=== PATIENT | female | born 1985 | race Hispanic/Latino ===

== ENCOUNTER 2018-06-04 12:05 | Emergency (ER) | payer SELFPAY ==
[2018-06-04 13:09] LABS: Absolute Lymphocytes (CBC) 1.1 K/uL (0.7-4.9); Absolute Monocytes 0.3 K/uL (0.1-1.3); Absolute Neutrophil 5.9 K/uL (1.8-8.0); Basophils % 0.3 % (0-1.3); Eosinophils % 0.9 % (0-4.4); Hematocrit 35.5 % (36.0-45.0); Lymphocytes % 14.3 % (15.3-44.8); MCH 27.1 pg (27.0-35.0); MCV 80.1 fL (80-100); MPV 10.2 fL (7.6-11.3); Monocytes % 4.5 % (3.3-12.3); RBC Red Blood Cell Count 4.43 M/uL (3.86-4.86)
[2018-06-04 13:25] LABS: Protime INR 1.11
[2018-06-04 13:27] LABS: ALT/SGPT 42 U/L (12-78); AST/SGOT 22 U/L (15-37); Alkaline Phosphatase 90 U/L (45-117); BUN Blood Urea Nitrogen 10 mg/dL (7-18); Bicarbonate 26 mmol/L (21-32); Bilirubin Direct 0.1 mg/dL (0-0.2); Bilirubin Total 0.4 mg/dL (0.2-1.0); Glucose Level 93 mg/dL (74-106); Potassium 3.9 mmol/L (3.5-5.1); Protein, Total 8.1 g/dL (6.4-8.2); Sodium Level 140 mmol/L (136-145)
[2018-06-04 13:27] LABS: Barbiturates NEGATIVE (NEGATIVE); Benzodiazepines NEGATIVE (NEGATIVE); Cocaine NEGATIVE (NEGATIVE); METHAMPHETAM NEGATIVE (NEGATIVE); Methadone NEGATIVE (NEGATIVE); Opiates NEGATIVE (NEGATIVE); Phencyclidine NEGATIVE (NEGATIVE); THC Cannibis NEGATIVE (NEGATIVE)
--- NOTE | 2018-06-04 13:29 | EKG ---
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
[2018-06-04] MEDS ORDERED: ACETAMINOPHEN 500 MG TAB ONE (20:28)
[2018-06-05] MEDS ORDERED: DIPHENHYDRAMINE 25 MG TAB/CAP ONE (01:35)
--- NOTE | 2018-06-05 12:07 | ER ---
Nurse's Notes [facility] Name: Tiana Mcclellan Age: 33 yrs Sex: Female : 1985 Arrival Date: 06/04/2018 Time: 12:09 Bed 6 Private MD: Diagnosis: Suicidal ideations Presentation: 06/04 12:17 Presenting complaint: Mental Health [place] reports pt sent her a suicide note hb via text along with a picture of a noose. went home to find pt in garage with a noose handing from ceiling. Pt has hx of suicidal ideation with one attempt by hanging. Transition of care: patient was not received from another setting of care. Onset of symptoms was June 04, 2018. Risk Assessment: Do you want to hurt yourself or someone else? Patient reports desire/thoughts of hurting themselves or someone else. Provider notified. Care prior to arrival: None. 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 - Social history:: Smoking status: Patient/guardian denies using tobacco. - Ebola Screening: : No symptoms or risks identified at this time. Screenin:40 Abuse screen: Denies threats or abuse. Denies injuries from another. Nutritional sg screening: No deficits noted. Tuberculosis screening: No symptoms or risk factors identified. Never had TB. Fall Risk None identified. Assessment: 12:40 General: Appears in no apparent distress. comfortable, well groomed, well developed, sg well nourished, Behavior is calm, cooperative, quiet. Pain: Denies pain. Neuro: Level of Consciousness is awake, alert, obeys commands, Oriented to person, place, time, Speech is normal, Facial symmetry appears normal. Cardiovascular: Patient's skin is warm and dry. Chest pain is denied. Respiratory: Airway is patent Respiratory effort is even, unlabored, Respiratory pattern is regular, symmetrical. GI: Abdomen is round non-distended. : No signs and/or symptoms were reported regarding the genitourinary system. EENT: No signs and/or symptoms were reported regarding the EENT system. Derm: Skin is intact, is healthy with good turgor, Skin is dry, Skin is normal, Skin temperature is warm. Musculoskeletal: Circulation, motion, and sensation intact. Swelling absent. 12:52 Reassessment: pt belongings removed and secured in security at this time A black bra, a sg spangler shirt, two black fabric flip flops, under garments, and bottoms, a cellular phone, a wallet, documented on paper charting and given to Security at this time. 13:40 Reassessment: Patient and/or family updated on plan of care and expected duration. Pain sg level reassessed. Patient is alert, oriented x 3, equal unlabored respirations, skin warm/dry/pink. 14:20 Reassessment: Patient appears in no apparent distress at this time. Patient and/or sg family updated on plan of care and expected duration. Pain level reassessed. Patient is alert, oriented x 3, equal unlabored respirations, skin warm/dry/pink. Alicia ( pt aunt)- [phone]. 14:40 Reassessment: Patient appears in no apparent distress at this time. Patient and/or sg family updated on plan of care and expected duration. Pain level reassessed. Patient is alert, oriented x 3, equal unlabored respirations, skin warm/dry/pink. pt family at bedside at this time, awaiting transfer approval from receiving facility. no new orders received, will continue to monitor. 15:40 Reassessment: Patient appears in no apparent distress at this time. Patient and/or sg family updated on plan of care and expected duration. Pain level reassessed. Patient is alert, oriented x 3, equal unlabored respirations, skin warm/dry/pink. 17:48 Reassessment: awaiting acceptance to receiving facility at this time, pt remains calm sg and pleasant, resting quietly on stretcher, no new orders received at this time. 19:24 Reassessment: Pt appears to be sleeping eyes closed, resp unlabored, no signs of bb discomfort noted will continue to monitor awaiting acceptance at psychiatric facility for further evaluation and possible treatment. 20:23 Reassessment: pt c/o headache K. Hardeep WAREHOUSE ADMINISTRATOR notified pt medicated see MAR. bb 21:27 Reassessment: family at bedside with food pt eating and acting appropriately. bb 23:53 Reassessment: Patient is alert, oriented x 3, equal unlabored respirations, skin bb warm/dry/pink. pt resting quietly, no discomfort noted. 06/05 01:30 Reassessment: PT C/O RASH/ITCHING, LOCALIZED TO ADHESIVES. MD NOTIFIED AND PT MEDICATED.bp 03:57 Reassessment: PT RESTING QUIETLY, ALL CURRENT STUDIES COMPLETED. URTICARIA RESOLVED. bp 12:42 Reassessment: Report given to Shannan HALE at [facility]. sv Vital Signs: 06/04 12:22 BP 128 / 81; Pulse 80; Resp 16; Temp 98; Pulse Ox 96% on R/A; Pain 3/10; hb 16:00 BP 121 / 80; Pulse 73; Resp 16; Pulse Ox 99% ; Pain 8/10; js4 20:29 BP 123 / 86; Pulse 97; Resp 14; Pulse Ox 100% ; kk5 06/05 01:06 BP 101 / 52; Pulse 67; Resp 12; Pulse Ox 98% ; kk5 04:03 BP 102 / 75; Pulse 84; Pulse Ox 98% ; kk5 ED Course: 06/04 12:09 Patient arrived in ED. bd 12:10 Sahara Meier FNP-C [facility]. kb 12:10 Hemant Andrade MD is Attending Physician. kb 12:15 Safety checks: Items removed: yes. Door open/sign placed on door: yes. Family/friend dh3 present: no. Sitter present: Yes. 12:17 Nita Shearer, ALEXIA is Primary Nurse. hb 12:21 Triage completed. hb 12:22 Arm band placed on right wrist. hb 12:30 Safety checks: Items removed: yes. Door open/sign placed on door: yes. Family/friend dh3 present: no. Sitter present: Yes. 12:39 EKG done, by crm technical lead. reviewed by Sahara STEWART. at1 12:45 Safety checks: Items removed: yes. Door open/sign placed on door: yes. Family/friend dh3 present: no. Sitter present: Yes. 12:50 Initial lab(s) drawn, by me, sent to lab. Inserted saline lock: 20 gauge in left dh3 antecubital area, using aseptic technique. Blood collected. 12:57 Urine collected: clean catch specimen, shayla colored. 3 13:00 Safety checks: Items removed: yes. Door open/sign placed on door: yes. Family/friend dh3 present: no. Sitter present: Yes. 13:06 Gerard Aponte RN is Primary Nurse. 13:15 Safety checks: Items removed: yes. Door open/sign placed on door: yes. Family/friend dh3 present: no. Sitter present: Yes. 13:30 Safety Checks: Personal items have been removed. The door is open or patient has been js4 placed in a hallway bed/chair. A family member and/or friend is present and encouraged to stay. Sitter present at this time. 13:45 Safety Checks: Personal items have been removed. The door is open or patient has been js4 placed in a hallway bed/chair. A family member and/or friend is present and encouraged to stay. Sitter present at this time. 14:00 Safety Checks: Personal items have been removed. The door is open or patient has been js4 placed in a hallway bed/chair. A family member and/or friend is present and encouraged to stay. Sitter present at this time. 14:15 Safety Checks: Personal items have been removed. The door is open or patient has been js4 placed in a hallway bed/chair. A family member and/or friend is present and encouraged to stay. Sitter present at this time. 14:30 Safety Checks: Personal items have been removed. The door is open or patient has been js4 placed in a hallway bed/chair. A family member and/or friend is present and encouraged to stay. Sitter present at this time. 14:45 Safety Checks: Personal items have been removed. The door is open or patient has been js4 placed in a hallway bed/chair. There are no family/friend visitors at this time Sitter present at this time. 15:00 Safety Checks: Personal items have been removed. The door is open or patient has been js4 placed in a hallway bed/chair. A family member and/or friend is present and encouraged to stay. Sitter present at this time. 15:15 Safety Checks: Personal items have been removed. The door is open or patient has been js4 placed in a hallway bed/chair. A family member and/or friend is present and encouraged to stay. Sitter present at this time. 15:30 Safety Checks: Personal items have been removed. The door is open or patient has been js4 placed in a hallway bed/chair. A family member and/or friend is present and encouraged to stay. Sitter present at this time. 15:45 Safety Checks: Personal items have been removed. The door is open or patient has been js4 placed in a hallway bed/chair. A family member and/or friend is present and encouraged to stay. Sitter present at this time. 16:00 Safety Checks: Personal items have been removed. The door is open or patient has been js4 placed in a hallway bed/chair. There are no family/friend visitors at this time Sitter present at this time. 16:15 Safety Checks: Personal items have been removed. The door is open or patient has been js4 placed in a hallway bed/chair. There are no family/friend visitors at this time Sitter present at this time. 16:30 Safety Checks: Personal items have been removed. The door is open or patient has been js4 placed in a hallway bed/chair. There are no family/friend visitors at this time Sitter present at this time. 16:45 Safety Checks: Personal items have been removed. The door is open or patient has been js4 placed in a hallway bed/chair. A family member and/or friend is present and encouraged to stay. Sitter present at this time. 17:00 Safety Checks: Personal items have been removed. The door is open or patient has been js4 placed in a hallway bed/chair. A family member and/or friend is present and encouraged to stay. Sitter present at this time. 17:15 Safety Checks: Personal items have been removed. The door is open or patient has been js4 placed in a hallway bed/chair. A family member and/or friend is present and encouraged to stay. Sitter present at this time. 17:20 Diet: Patient given a regular meal tray. sg 17:30 Safety Checks: Personal items have been removed. The door is open or patient has been js4 placed in a hallway bed/chair. A family member and/or friend is present and encouraged to stay. Sitter present at this time. 17:45 Safety Checks: Personal items have been removed. The door is open or patient has been js4 placed in a hallway bed/chair. A family member and/or friend is present and encouraged to stay. Sitter present at this time. 18:00 Safety Checks: Personal items have been removed. The door is open or patient has been js4 placed in a hallway bed/chair. A family member and/or friend is present and encouraged to stay. Sitter present at this time. 18:15 Safety Checks: Personal items have been removed. The door is open or patient has been js4 placed in a hallway bed/chair. A family member and/or friend is present and encouraged to stay. Sitter present at this time. 18:30 Safety Checks: Personal items have been removed. The door is open or patient has been js4 placed in a hallway bed/chair. There are no family/friend visitors at this time Sitter present at this time. 18:45 Safety Checks: Personal items have been removed. The door is open or patient has been js4 placed in a hallway bed/chair. There are no family/friend visitors at this time Sitter present at this time. 18:54 Safety Checks: Personal items have been removed. The door is open or patient has been kk5 placed in a hallway bed/chair. There are no family/friend visitors at this time Other: pt request water,states has CINTRON. 19:13 Safety Checks: Personal items have been removed. The door is open or patient has been kk5 placed in a hallway bed/chair. There are no family/friend visitors at this time Sitter present at this time. 19:24 Pura Martínez, ALEXIA is Primary Nurse. bb 20:00 Safety Checks: Personal items have been removed. The door is open or patient has been kk5 placed in a hallway bed/chair. There are no family/friend visitors at this time Sitter present at this time. 20:14 Safety Checks: Personal items have been removed. The door is open or patient has been kk5 placed in a hallway bed/chair. There are no family/friend visitors at this time Sitter present at this time. 20:30 Safety Checks: Personal items have been removed. The door is open or patient has been kk5 placed in a hallway bed/chair. There are no family/friend visitors at this time Sitter present at this time. 20:42 Safety Checks: Personal items have been removed. The door is open or patient has been kk5 placed in a hallway bed/chair. There are no family/friend visitors at this time Sitter present at this time. 20:58 Safety Checks: Personal items have been removed. The door is open or patient has been kk5 placed in a hallway bed/chair. There are no family/friend visitors at this time Sitter present at this time. 21:14 Safety Checks: Personal items have been removed. The door is open or patient has been kk5 placed in a hallway bed/chair. A family member and/or friend is present and encouraged to stay. Sitter present at this time. 21:30 Safety Checks: Personal items have been removed. The door is open or patient has been kk5 placed in a hallway bed/chair. A family member and/or friend is present and encouraged to stay. Sitter present at this time. 21:44 Safety Checks: Personal items have been removed. The door is open or patient has been kk5 placed in a hallway bed/chair. A family member and/or friend is present and encouraged to stay. Sitter present at this time. 21:58 Safety Checks: Personal items have been removed. The door is open or patient has been kk5 placed in a hallway bed/chair. A family member and/or friend is present and encouraged to stay. Sitter present at this time. 22:14 Safety Checks: Personal items have been removed. The door is open or patient has been kk5 placed in a hallway bed/chair. A family member and/or friend is present and encouraged to stay. Sitter present at this time. 22:28 Safety Checks: Personal items have been removed. The door is open or patient has been kk5 placed in a hallway bed/chair. A family member and/or friend is present and encouraged to stay. Sitter present at this time. 22:45 Safety Checks: Personal items have been removed. The door is open or patient has been kk5 placed in a hallway bed/chair. There are no family/friend visitors at this time Sitter present at this time. 22:58 Safety Checks: Personal items have been removed. The door is open or patient has been kk5 placed in a hallway bed/chair. There are no family/friend visitors at this time Sitter present at this time. 23:12 Safety Checks: Personal items have been removed. The door is open or patient has been kk5 placed in a hallway bed/chair. There are no family/friend visitors at this time Sitter present at this time. 23:28 Safety Checks: Personal items have been removed. The door is open or patient has been kk5 placed in a hallway bed/chair. There are no family/friend visitors at this time Sitter present at this time. 23:47 Safety Checks: Personal items have been removed. The door is open or patient has been kk5 placed in a hallway bed/chair. There are no family/friend visitors at this time Sitter present at this time. 23:57 Safety Checks: Personal items have been removed. The door is open or patient has been kk5 placed in a hallway bed/chair. There are no family/friend visitors at this time Sitter present at this time. 06/05 00:14 Safety Checks: Personal items have been removed. The door is open or patient has been kk5 placed in a hallway bed/chair. There are no family/friend visitors at this time Sitter present at this time. 00:30 Safety Checks: Personal items have been removed. The door is open or patient has been kk5 placed in a hallway bed/chair. There are no family/friend visitors at this time Sitter present at this time. 00:48 Safety Checks: Personal items have been removed. The door is open or patient has been kk5 placed in a hallway bed/chair. There are no family/friend visitors at this time Sitter present at this time. 00:59 Safety Checks: Personal items have been removed. The door is open or patient has been kk5 placed in a hallway bed/chair. There are no family/friend visitors at this time Sitter present at this time. 01:14 Safety Checks: Personal items have been removed. The door is open or patient has been kk5 placed in a hallway bed/chair. There are no family/friend visitors at this time Sitter present at this time. 01:30 Safety Checks: Personal items have been removed. The door is open or patient has been kk5 placed in a hallway bed/chair. There are no family/friend visitors at this time Sitter present at this time. 01:30 IV discontinued, intact, bleeding controlled, No redness/swelling at site. Pressure bp dressing applied. 01:45 Safety Checks: Personal items have been removed. The door is open or patient has been kk5 placed in a hallway bed/chair. There are no family/friend visitors at this time Sitter present at this time. 02:00 Safety Checks: Personal items have been removed. The door is open or patient has been kk5 placed in a hallway bed/chair. There are no family/friend visitors at this time Sitter present at this time. 02:14 Safety Checks: Personal items have been removed. The door is open or patient has been kk5 placed in a hallway bed/chair. There are no family/friend visitors at this time Sitter present at this time. 02:29 Safety Checks: Personal items have been removed. The door is open or patient has been kk5 placed in a hallway bed/chair. There are no family/friend visitors at this time Sitter present at this time. 02:45 Safety Checks: Personal items have been removed. The door is open or patient has been kk5 placed in a hallway bed/chair. There are no family/friend visitors at this time Sitter present at this time. 02:59 Safety Checks: Personal items have been removed. The door is open or patient has been kk5 placed in a hallway bed/chair. There are no family/friend visitors at this time Sitter present at this time. 03:17 Safety Checks: Personal items have been removed. The door is open or patient has been kk5 placed in a hallway bed/chair. There are no family/friend visitors at this time Sitter present at this time. 03:32 Safety Checks: Personal items have been removed. The door is open or patient has been kk5 placed in a hallway bed/chair. There are no family/friend visitors at this time Sitter present at this time. 03:49 Safety Checks: Personal items have been removed. The door is open or patient has been kk5 placed in a hallway bed/chair. There are no family/friend visitors at this time Sitter present at this time. 04:09 Safety Checks: Personal items have been removed. The door is open or patient has been kk5 placed in a hallway bed/chair. There are no family/friend visitors at this time Sitter present at this time. 04:31 Safety Checks: Personal items have been removed. The door is open or patient has been kk5 placed in a hallway bed/chair. There are no family/friend visitors at this time Sitter present at this time. 04:44 Safety Checks: Personal items have been removed. The door is open or patient has been kk5 placed in a hallway bed/chair. There are no family/friend visitors at this time Sitter present at this time. 05:00 Safety Checks: Personal items have been removed. The door is open or patient has been kk5 placed in a hallway bed/chair. There are no family/friend visitors at this time Sitter present at this time. 05:15 Safety Checks: Personal items have been removed. The door is open or patient has been kk5 placed in a hallway bed/chair. There are no family/friend visitors at this time Sitter present at this time. 05:29 Safety Checks: Personal items have been removed. The door is open or patient has been kk5 placed in a hallway bed/chair. There are no family/friend visitors at this time Sitter present at this time. 05:44 Safety Checks: Personal items have been removed. The door is open or patient has been kk5 placed in a hallway bed/chair. There are no family/friend visitors at this time Sitter present at this time. 05:57 Safety Checks: Personal items have been removed. The door is open or patient has been kk5 placed in a hallway bed/chair. There are no family/friend visitors at this time Sitter present at this time. 06:15 Safety Checks: Personal items have been removed. The door is open or patient has been kk5 placed in a hallway bed/chair. There are no family/friend visitors at this time Sitter present at this time. 06:31 Safety Checks: Personal items have been removed. The door is open or patient has been kk5 placed in a hallway bed/chair. There are no family/friend visitors at this time Sitter present at this time. 06:46 Safety Checks: Personal items have been removed. The door is open or patient has been kk5 placed in a hallway bed/chair. There are no family/friend visitors at this time Sitter present at this time. 06:57 Safety Checks: Personal items have been removed. The door is open or patient has been kk5 placed in a hallway bed/chair. There are no family/friend visitors at this time Sitter present at this time. 07:04 Safety checks: Items removed: yes. Door open/sign placed on door: yes. Family/friend em1 present: no. Sitter present: Yes. 07:05 Primary Nurse role handed off by Pura Martínez, ALEXIA sg 07:05 Gerard Aponte, ALEXIA is Primary Nurse. sg 07:18 Safety checks: Items removed: yes. Door open/sign placed on door: yes. Family/friend em1 present: no. Sitter present: Yes. 07:26 Faxed patient record to the following facilities in the attempt to transfer patient ; [facility], [facility], [facility], [facility], [facility], [facility], [facility], [facility], [facility], [facility], [facility], [facility] and [facility]. 07:32 Safety checks: Items removed: yes. Door open/sign placed on door: yes. Family/friend em1 present: no. Sitter present: Yes. 07:46 Safety checks: Items removed: yes. Door open/sign placed on door: yes. Family/friend em1 present: no. Sitter present: Yes. 08:06 Safety checks: Items removed: yes. Door open/sign placed on door: yes. Family/friend em1 present: no. Sitter present: Yes. 08:17 Safety checks: Items removed: yes. Door open/sign placed on door: yes. Family/friend em1 present: no. Sitter present: Yes. 08:30 Safety Checks: Personal items have been removed. The door is open or patient has been fa1 placed in a hallway bed/chair. There are no family/friend visitors at this time Sitter present at this time. 08:45 Safety Checks: Personal items have been removed. The door is open or patient has been fa1 placed in a hallway bed/chair. There are no family/friend visitors at this time Sitter present at this time. 09:00 Safety Checks: Personal items have been removed. The door is open or patient has been fa1 placed in a hallway bed/chair. There are no family/friend visitors at this time Sitter present at this time. 09:15 Safety Checks: Personal items have been removed. The door is open or patient has been fa1 placed in a hallway bed/chair. There are no family/friend visitors at this time Sitter present at this time. 09:30 Safety Checks: Personal items have been removed. The door is open or patient has been fa1 placed in a hallway bed/chair. There are no family/friend visitors at this time Sitter present at this time. 09:45 Safety Checks: Personal items have been removed. The door is open or patient has been fa1 placed in a hallway bed/chair. A family member and/or friend is present and encouraged to stay. Sitter present at this time. 10:00 Safety Checks: Personal items have been removed. The door is open or patient has been fa1 placed in a hallway bed/chair. A family member and/or friend is present and encouraged to stay. Sitter present at this time. 10:15 Safety Checks: Personal items have been removed. The door is open or patient has been fa1 placed in a hallway bed/chair. A family member and/or friend is present and encouraged to stay. Sitter present at this time. 10:30 Safety Checks: Personal items have been removed. The door is open or patient has been fa1 placed in a hallway bed/chair. A family member and/or friend is present and encouraged to stay. Sitter present at this time. 10:45 Safety Checks: Personal items have been removed. The door is open or patient has been fa1 placed in a hallway bed/chair. A family member and/or friend is present and encouraged to stay. Sitter present at this time. 10:49 initiated transfer with Sammi at the [facility] transfer center/ Faxed exclusionary eb forms and patient records as requested by facility. 11:00 Safety Checks: Personal items have been removed. The door is open or patient has been fa1 placed in a hallway bed/chair. A family member and/or friend is present and encouraged to stay. Sitter present at this time. 11:15 Safety Checks: Personal items have been removed. The door is open or patient has been fa1 placed in a hallway bed/chair. A family member and/or friend is present and encouraged to stay. Sitter present at this time. 11:30 Safety Checks: Personal items have been removed. The door is open or patient has been fa1 placed in a hallway bed/chair. A family member and/or friend is present and encouraged to stay. Sitter present at this time. 11:45 Safety Checks: Personal items have been removed. The door is open or patient has been fa1 placed in a hallway bed/chair. A family member and/or friend is present and encouraged to stay. Sitter present at this time. 11:50 connected the Doctor from [facility] with [facility] for patient transfer consultation. eb 11:54 administrative approval given by Sammi Mcguire/ Dr. Abdullahi accepted the patient in eb transfer. Sammi will call back to get nurse to nurse done and at that time a room will be given for the patient. 12:00 Safety Checks: Personal items have been removed. The door is open or patient has been fa1 placed in a hallway bed/chair. A family member and/or friend is present and encouraged to stay. Sitter present at this time. 12:15 Safety Checks: Personal items have been removed. The door is open or patient has been fa1 placed in a hallway bed/chair. A family member and/or friend is present and encouraged to stay. Sitter present at this time. 12:30 Safety Checks: Personal items have been removed. The door is open or patient has been fa1 placed in a hallway bed/chair. There are no family/friend visitors at this time Sitter present at this time. 12:31 connected Sammi with the ED nurse for nurse to nurse. eb 12:45 Safety Checks: Personal items have been removed. The door is open or patient has been fa1 placed in a hallway bed/chair. There are no family/friend visitors at this time Sitter present at this time. 13:00 Safety Checks: Personal items have been removed. The door is open or patient has been fa1 placed in a hallway bed/chair. There are no family/friend visitors at this time Sitter present at this time. 13:15 Safety Checks: Personal items have been removed. The door is open or patient has been fa1 placed in a hallway bed/chair. There are no family/friend visitors at this time Sitter present at this time. 13:30 Safety Checks: Personal items have been removed. The door is open or patient has been fa1 placed in a hallway bed/chair. There are no family/friend visitors at this time Sitter present at this time. 13:45 Safety Checks: Personal items have been removed. The door is open or patient has been fa1 placed in a hallway bed/chair. A family member and/or friend is present and encouraged to stay. Sitter present at this time. 14:09 No provider procedures requiring assistance completed. sv Administered Medications: 06/04 20:23 Drug: Tylenol 1000 mg Route: PO; bb 22:00 Follow up: Response: Pain is decreased bp 06/05 01:32 Drug: Benadryl 25 mg Route: PO; bp 03:54 Follow up: Response: Marked relief of symptoms bp Outcome: 12:06 ER care complete, transfer ordered by . anali 14:08 Transferred by ground EMS to [facility], Transfer form completed. Note: sv Report given to EMS 14:08 Condition: stable 14:08 Instructed on the need for transfer. 14:09 Patient left the ED. sv Signatures: Sahara Meier, GEODESY TEACHER-C GEODESY TEACHER-CkCleopatra Jean Stephanie, RN Gerard Brooks RN Pura Springer RN RN bb Martinez, Eric em1 Bettye Jeff, plaster maker EKG Tat1 Javier Yates RN RN fa1 Nita Shearer RN Beth Arauz 3 Lit Nougeira, RN RN js4 Hao Diaz RN RN bp Botello, Elizabeth eb Kouba, Kimberly kk5 Corrections: (The following items were deleted from the chart) 06/04 13:44 13:27 Patient is placed in psych hold js4 js4 15:00 14:44 Safety Checks: Personal items have been removed. The door is open or patient has js4 been placed in a hallway bed/chair. There are no family/friend visitors at this time Sitter present at this time. js4 06/05 03:55 03:53 BP 124 / 87; Pulse 76bpm; Resp 14bpm; Pulse Ox 100%; bp bp
--- NOTE | 2018-06-05 12:07 | EDPHYS ---
Physician Documentation [facility] Name: Tiana Mcclellan Age: 33 yrs Sex: Female : 1985 Arrival Date: 06/04/2018 Time: 12:09 Bed 6 Private MD: ED Physician Hemant Andrade HPI: 06/05 12:06 This 33 yrs old Female presents to ER via [employer] with complaints of kb Suicidal Ideation. 06/04 13:27 The patient presents to the emergency department with depression, over a relationship, kb a history of a suicide gesture, tied noose around neck, suicide ideation, and the patient has a plan, to hang oneself. Onset: The symptoms/episode began/occurred. The patient has experienced similar episodes in the past. The patient has not recently seen a physician. 06/05 12:06 Associated signs and symptoms: Pertinent positives; depression, suicide ideation. kb Severity of symptoms: At their worst the symptoms were moderate in the emergency department the symptoms are unchanged. Pt reports suicidal ideations and depression for a year. Started after having an elective , then continued due to marital problems. States she got into an argument with her on Saturday night and that is what triggered her to act on her suicidal ideations today. Pt made a noose, took a picture of it and sent it with a suicide text to her . . 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 - Social history:: Smoking status: Patient/guardian denies using tobacco. - Ebola Screening: : No symptoms or risks identified at this time. ROS: 13:21 Constitutional: Negative for fever, chills, and weight loss, Eyes: Negative for injury, kb pain, redness, and discharge, ENT: Negative for injury, pain, and discharge, Neck: Negative for injury, pain, and swelling, Cardiovascular: Negative for chest pain, palpitations, and edema, Respiratory: Negative for shortness of breath, cough, wheezing, and pleuritic chest pain, Abdomen/GI: Negative for abdominal pain, nausea, vomiting, diarrhea, and constipation, Back: Negative for injury and pain, : Negative for injury, bleeding, discharge, and swelling, MS/Extremity: Negative for injury and deformity, Skin: Negative for injury, rash, and discoloration, Neuro: Negative for headache, weakness, numbness, tingling, and seizure. 13:21 Psych: Positive for depression, suicide gesture, suicidal ideation, Negative for anxiety, drug dependence, alcohol dependence, auditory hallucinations, visual hallucinations, homicidal ideation, insomnia. Exam: 13:21 Constitutional: This is a well developed, well nourished patient who is awake, alert, kb and in no acute distress. Head/Face: Normocephalic, atraumatic. Eyes: Pupils equal round and reactive to light, extra-ocular motions intact. Lids and lashes normal. Conjunctiva and sclera are non-icteric and not injected. Cornea within normal limits. Periorbital areas with no swelling, redness, or edema. ENT: Nares patent. No nasal discharge, no septal abnormalities noted. Tympanic membranes are normal and external auditory canals are clear. Oropharynx with no redness, swelling, or masses, exudates, or evidence of obstruction, uvula midline. Mucous membranes moist. Neck: Trachea midline, no thyromegaly or masses palpated, and no cervical lymphadenopathy. Supple, full range of motion without nuchal rigidity, or vertebral point tenderness. No Meningismus. Chest/axilla: Normal chest wall appearance and motion. Nontender with no deformity. No lesions are appreciated. Cardiovascular: Regular rate and rhythm with a normal S1 and S2. No gallops, murmurs, or rubs. Normal PMI, no JVD. No pulse deficits. Respiratory: Lungs have equal breath sounds bilaterally, clear to auscultation and percussion. No rales, rhonchi or wheezes noted. No increased work of breathing, no retractions or nasal flaring. Abdomen/GI: Soft, non-tender, with normal bowel sounds. No distension or tympany. No guarding or rebound. No evidence of tenderness throughout. Back: No spinal tenderness. No costovertebral tenderness. Full range of motion. Skin: Warm, dry with normal turgor. Normal color with no rashes, no lesions, and no evidence of cellulitis. Hickie noted to right neck. Neuro: Awake and alert, GCS 15, oriented to person, place, time, and situation. Cranial nerves II-XII grossly intact. Motor strength 5/5 in all extremities. Sensory grossly intact. Cerebellar exam normal. Normal gait. 13:21 Musculoskeletal/extremity: Extremities: grossly normal except: noted in the left knee: abrasion, swelling, ROM: intact in all extremities, Circulation is intact in all extremities. Sensation intact. Weight bearing: able to fully bear weight. 13:26 Psych: Behavior/mood is cooperative, suicidal, depressed, Affect is flat, Oriented to kb person, place, time, Patient having thoughts of suicide. Plan for suicide is hang herself Judgement / Insight is normal. Memory is normal. Delusions/hallucinations are not present. Vital Signs: 12:22 BP 128 / 81; Pulse 80; Resp 16; Temp 98; Pulse Ox 96% on R/A; Pain 3/10; hb 16:00 BP 121 / 80; Pulse 73; Resp 16; Pulse Ox 99% ; Pain 8/10; js4 20:29 BP 123 / 86; Pulse 97; Resp 14; Pulse Ox 100% ; kk5 06/05 01:06 BP 101 / 52; Pulse 67; Resp 12; Pulse Ox 98% ; kk5 04:03 BP 102 / 75; Pulse 84; Pulse Ox 98% ; kk5 MDM: 06/04 12:10 Patient medically screened. kb 13:21 Data reviewed: vital signs, nurses notes. Data interpreted: Pulse oximetry: on room air kb is 96 %. Interpretation: normal. 06/05 12:05 Counseling: I had a detailed discussion with the patient and/or guardian regarding: the kb historical points, exam findings, and any diagnostic results supporting the discharge/admit diagnosis, lab results, the need to transfer to another facility, [facility] does not immediately have the required specialist. 06/04 12:10 Order name: Acetaminophen; Complete Time: 13:33 kb 06/04 12:10 Order name: Basic Metabolic Panel; Complete Time: 13:33 kb 06/04 12:10 Order name: CBC with Diff; Complete Time: 13:20 kb 06/04 12:10 Order name: ETOH Level; Complete Time: 13:33 kb 06/04 12:10 Order name: Hepatic Function; Complete Time: 13:33 kb 06/04 12:10 Order name: PT-INR; Complete Time: 13:33 kb 06/04 12:10 Order name: Ptt, Activated; Complete Time: 13:33 kb 06/04 12:10 Order name: Salicylate; Complete Time: 13:54 kb 06/04 12:10 Order name: Urine Drug Screen; Complete Time: 13:33 kb 06/04 12:10 Order name: EKG; Complete Time: 12:11 kb 06/04 15:58 Order name: Diet Regular; Complete Time: 15:58 sv 06/05 07:23 Order name: Diet Finger Food; Complete Time: 07:23 ss 06/04 12:10 Order name: Urine Test (obtain specimen); Complete Time: 12:58 kb 06/04 12:10 Order name: EKG - Nurse/Tech; Complete Time: 12:58 kb 06/04 12:10 Order name: IV Saline Lock; Complete Time: 12:58 kb 06/04 12:10 Order name: Labs collected and sent; Complete Time: 12:58 kb 06/04 12:10 Order name: Urine Dipstick-Ancillary (obtain specimen); Complete Time: 12:58 kb Administered Medications: 06/04 20:23 Drug: Tylenol 1000 mg Route: PO; bb 22:00 Follow up: Response: Pain is decreased bp 06/05 01:32 Drug: Benadryl 25 mg Route: PO; bp 03:54 Follow up: Response: Marked relief of symptoms bp Disposition: 17:10 Co-signature as Attending Physician, Hemant Andrade MD. rn Disposition: 06/05/18 12:06 Transfer ordered to [facility]. Diagnosis is Suicidal ideations. - Reason for transfer: Higher level of care. - [facility] - Condition is Stable. - Problem is new. - Symptoms are unchanged. Signatures: Dispatcher [employer] Sahara Walker, CONTACT CENTER REPRESENTATIVE-C CONTACT CENTER REPRESENTATIVE-Kati Jacques, RN RN Fern Garay FNP-C CONTACT CENTER REPRESENTATIVE-Pura Kent RN Hemant Herrera MD MD rn Baxter, Heather, RN RN hb Peltier, Brian RN RN bp Corrections: (The following items were deleted from the chart) 06/04 13:50 13:21 Constitutional: This is a well developed, well nourished patient who is awake, kb alert, and in no acute distress. Head/Face: Normocephalic, atraumatic. Eyes: Pupils equal round and reactive to light, extra-ocular motions intact. Lids and lashes normal. Conjunctiva and sclera are non-icteric and not injected. Cornea within normal limits. Periorbital areas with no swelling, redness, or edema. ENT: Nares patent. No nasal discharge, no septal abnormalities noted. Tympanic membranes are normal and external auditory canals are clear. Oropharynx with no redness, swelling, or masses, exudates, or evidence of obstruction, uvula midline. Mucous membranes moist. Neck: Trachea midline, no thyromegaly or masses palpated, and no cervical lymphadenopathy. Supple, full range of motion without nuchal rigidity, or vertebral point tenderness. No Meningismus. Chest/axilla: Normal chest wall appearance and motion. Nontender with no deformity. No lesions are appreciated. Cardiovascular: Regular rate and rhythm with a normal S1 and S2. No gallops, murmurs, or rubs. Normal PMI, no JVD. No pulse deficits. Respiratory: Lungs have equal breath sounds bilaterally, clear to auscultation and percussion. No rales, rhonchi or wheezes noted. No increased work of breathing, no retractions or nasal flaring. Abdomen/GI: Soft, non-tender, with normal bowel sounds. No distension or tympany. No guarding or rebound. No evidence of tenderness throughout. Back: No spinal tenderness. No costovertebral tenderness. Full range of motion. Skin: Warm, dry with normal turgor. Normal color with no rashes, no lesions, and no evidence of cellulitis. Neuro: Awake and alert, GCS 15, oriented to person, place, time, and situation. Cranial nerves II-XII grossly intact. Motor strength 5/5 in all extremities. Sensory grossly intact. Cerebellar exam normal. Normal gait. kb 06/05 12:15 12:06 06/05/2018 12:06 Transfer ordered to [facility]. Diagnosis is kb Suicidal ideations. Reason for transfer: Higher level of care. Accepting physician is [facility]. Condition is Stable. Problem is new. Symptoms are unchanged. kb 14:09 12:15 06/05/2018 12:06 Transfer ordered to [facility]. Diagnosis is sv Suicidal ideations. Reason for transfer: Higher level of care. Accepting physician is [facility]. Condition is Stable. Problem is new. Symptoms are unchanged. kb
== END 2018-06-05 14:09 | disposition short-term general hospital (02) ==
LOC: ER 12:05
DX: R45.851 Suicidal ideations (principal); F32.9 Major depressive disorder, single episode, unspecified
CPT/HCPCS: 36415; 80048; 80076; 80307; 80320; 80329; 85025; 85610; 85730; 93005; 99285

== ENCOUNTER 2018-09-14 17:40 | Emergency (ER) | payer SELFPAY ==
--- OUTSIDE RECORDS SUMMARY | 2018-09-14 17:43 | XMS REPORT ---
:1985 Author Organization [employer] Care Team Providers Name Role Phone Andrea Dominguez Provider Role Unavailable Allergies, Adverse Reactions, Alerts Substance Reaction Event Type N.K.D.A. Info Not Available Non Drug Allergy Problems Problem Type Condition Code Onset Dates Condition Status Problem Pain in joint of left knee M25.562 Active Problem Sprain of left knee, unspecified S83.92XA Active ligament, initial encounter Assessment Pain in joint of left knee M25.562 Active Assessment Sprain of left knee, unspecified S83.92XA Active ligament, initial encounter Medications No Known Medications Results No Known Results Summary Purpose eClinicalWorks Submission
--- OUTSIDE RECORDS SUMMARY | 2018-09-14 17:43 | XMS REPORT | Clinical Summary ---
:1985 Author Organization [facility] Address [address] [place] [address] Care Team Providers Name Role Phone Asked, No Pcp Primary Care Provider Unavailable Allergies No Known Allergies Medications Medication Sig Dispensed Refills Start Date End Date Status traZODone (DESYREL) Take 1 tablet 30 tablet 0 06/11/2018 07/11/2018 50 MG (50 mg total) by tabletIndications: mouth nightly as insomnia associated needed for sleep with depression for up to 30 days. venlafaxine XR Take 1 capsule 30 capsule 0 06/11/2018 07/11/2018 (EFFEXOR-XR) 37.5 MG (37.5 mg total) 24 hr by mouth every capsuleIndications: morning for 30 Anxiety with days. Depression Active Problems Problem Noted Date Suicidal ideations 06/05/2018 Recurrent major depressive disorder 06/05/2018 Encounters Date Type Specialty Care Team Description 06/16/2018 Clinical Support Home Health Services 06/05/2018 - Hospital Encounter Psychiatry Myriam Abdullahi 06/11/2018 MD Jose Moreno James N., MD 06/05/2018 Intake Access N/A after 09/13/2017 Immunizations Name Dates Previously Given Next Due FLUCELVAX QUAD PF (0.5mL syringe) 06/06/2018 Social History Tobacco Use Types Packs/Day Years Used Date Never Assessed Tobacco Cessation: Counseling Given: No Sex Assigned at Date Recorded Not on file Job Start Date Occupation Industry Not on file Not on file Not on file Travel History Travel Start Travel End No recent travel history available. Last Filed Vital Signs Vital Sign Reading Time Taken Blood Pressure 120/77 06/16/2018 2:26 PM CDT Pulse 69 06/16/2018 2:26 PM CDT Temperature 36.6 C (97.8 F) 06/16/2018 2:26 PM CDT Respiratory Rate 17 06/16/2018 2:26 PM CDT Oxygen Saturation 99% 06/11/2018 6:38 AM CDT Inhaled Oxygen Concentration - - Weight 90 kg (198 lb 6.4 oz) 06/11/2018 6:38 AM CDT Height 162.6 cm (5' 4") 06/05/2018 5:21 PM CDT Body Mass Index 34.06 06/11/2018 6:38 AM CDT Plan of Treatment Health Maintenance Due Date Last Done Comments CERVICAL CANCER SCREENING 2004 INFLUENZA VACCINE Completed 06/06/2018 Procedures Procedure Name Priority Date/Time Associated Diagnosis Comments LIPID PANEL Routine 06/06/2018 5:40 AM Results for this CDT procedure are in the results section. HEMOGLOBIN A1C Routine 06/06/2018 5:40 AM Results for this CDT procedure are in the results section. after 09/13/2017 Results Hemoglobin A1c (06/06/2018 5:40 AM CDT) Hemoglobin A1C 4.8 4.0 - 5.6 % [facility] DEPARTMENT OF PATHOLOGY Comment: AND GENOMIC MEDICINE HbA1c cutoffs for diagnosing diabetes: 4.0% - 5.6%=normal 5.7% - 6.4%=increased risk for diabetes (prediabetes) >=6.5%=diabetes Goals for glycemic control (ADA 2016) < 7.0%Target for non adults with diabetes. More or less stringent targets may be appropriate for individual patients. <7.5% Target for Children and adolescents with type 1 diabetes. Specimen Blood Performing Organization Address City/State/Zipcode Phone Number [facility] DEPARTMENT OF PATHOLOGY AND [address] [place] [address] GENOMIC MEDICINE Lipid panel (06/06/2018 5:40 AM CDT) Cholesterol 164 <200 mg/dL [facility] DEPARTMENT OF PATHOLOGY AND GENOMIC MEDICINE Triglycerides 112 <150 mg/dL [facility] DEPARTMENT OF PATHOLOGY AND GENOMIC MEDICINE HDL cholesterol 39 (L) >40 mg/dL [facility] DEPARTMENT OF PATHOLOGY AND GENOMIC MEDICINE LDL cholesterol 120 (H)Comment: Result <100 mg/dL [facility] DEPARTMENT OF obtained by direct LDL PATHOLOGY AND GENOMIC measurement MEDICINE [facility] Comment: PATHOLOGY AND GENOMIC Total Cholesterol (mg/dL) MEDICINE <200 Desirable [id number] >=240High Triglycerides (mg/dL) <150 Normal [id number]-[id number] 200-499High >=500Very high HDL Cholesterol (mg/dL) <40Low (male) <40Low (female) LDL Cholesterol (mg/dL) <100 Optimal 100-129Near or above optimal [id number] 160-189High >=190Very high Risk Catergories that modify LDL goals. Risk CatergoriesLDL goal (mg/dL) CHD and CHD risk equivalent<100 (10-year risk >20%) Multiple (2+) risk factors <130 (10-year risk=<20%) 0-1 risk factors <160 (<10-year risk) Defining levels of lipids in metabolic syndrome Triglycerides>=150 mg/dL HDL Cholesterol Men<40 mg/dL Women<40 mg/dL Non-HDL cholesterol is a second target for therapy in persons with high triglycerides (>=200 mg/dL) Specimen Plasma specimen Performing Organization Address City/State/Zipcode Phone Number [facility] DEPARTMENT OF PATHOLOGY AND [address] [place] [address] [facility] MEDICINE after 09/13/2017 Advance Directives Patient has advance care planning documents on file. For more information, please contact:Aki Perdomo[address] [place] [address]
[2018-09-14 18:17] LABS: Urine Blood TRACE (NEG); Urine Glucose NEGATIVE (NEG); Urine Protein NEGATIVE (NEG); Urine Specific Gravity 1.025 (1.005-1.030); Urine pH 5.5 (5.0-7.0)
[2018-09-14 18:26] LABS: Absolute Lymphocytes (CBC) 1.2 K/uL (0.7-4.9); Absolute Monocytes 0.4 K/uL (0.1-1.3); Absolute Neutrophil 7.7 K/uL (1.8-8.0); Basophils % 0.2 % (0-1.3); Eosinophils % 1.7 % (0-4.4); Hematocrit 37.2 % (36.0-45.0); Lymphocytes % 12.6 % (15.3-44.8); MPV 10.4 fL (7.6-11.3); Monocytes % 4.2 % (3.3-12.3); RBC Red Blood Cell Count 4.66 M/uL (3.86-4.86)
[2018-09-14 18:36] LABS: Protime INR 1.06
[2018-09-14 18:38] LABS: Barbiturates NEGATIVE (NEGATIVE); Benzodiazepines NEGATIVE (NEGATIVE); Cocaine NEGATIVE (NEGATIVE); METHAMPHETAM NEGATIVE (NEGATIVE); Methadone NEGATIVE (NEGATIVE); Opiates NEGATIVE (NEGATIVE); Phencyclidine NEGATIVE (NEGATIVE); THC Cannibis NEGATIVE (NEGATIVE)
[2018-09-14 19:07] LABS: ALT/SGPT 45 U/L (12-78); AST/SGOT 19 U/L (15-37); Alkaline Phosphatase 93 U/L (45-117); BUN Blood Urea Nitrogen 12 mg/dL (7-18); Bicarbonate 25 mmol/L (21-32); Bilirubin Direct < 0.1 mg/dL (0-0.2); Bilirubin Total 0.3 mg/dL (0.2-1.0); Glucose Level 99 mg/dL (74-106); Potassium 3.6 mmol/L (3.5-5.1); Sodium Level 141 mmol/L (136-145)
[2018-09-15] MEDS ORDERED: ACETAMINOPHEN 500 MG TAB ONE (01:31)
--- NOTE | 2018-09-15 02:56 | ER ---
Nurse's Notes [facility] Name: Tiana Mcclellan Age: 33 yrs Sex: Female : 1985 Arrival Date: 09/14/2018 Time: 17:41 Bed 15 Private MD: None, None Diagnosis: Suicidal ideations;Depression Presentation: 09/14 17:44 Presenting complaint: Patient states: im having suicidal thoughts for couple of days hj now and its getting worse; states: i dont have any plans on how to do it; i stopped taking Effexor after taking it for a month because its not helping; hx of SI last year by hanging;. Transition of care: patient was not received from another setting of care. Onset of symptoms was September 14, 2018. Risk Assessment: Do you want to hurt yourself or someone else? Patient reports desire/thoughts of hurting themselves or someone else. Provider notified. Initial Sepsis Screen: Does the patient meet any 2 criteria? No. Patient's initial sepsis screen is negative. Does the patient have a suspected source of infection? No. Patient's initial sepsis screen is negative. Care prior to arrival: None. 17:44 Method Of Arrival: Ambulatory 17:44 Acuity: LOVE 2 Triage Assessment: 17:48 General: Appears in no apparent distress. uncomfortable, Behavior is cooperative, hj appropriate for age, anxious, crying. Pain: Denies pain. COAL SAMPLER: 17:48 LMP 08/11/2018 Historical: - Allergies: 17:47 No Known Allergies; hj - Home Meds: 17:47 Effexor XR 37.5 mg Oral cp24 1 cap once daily [Active]; hj - PMHx: 17:47 Depression; - PSHx: 17:47 None; hj - Immunization history:: Adult Immunizations up to date. - Social history:: Smoking status: Patient/guardian denies using tobacco, Patient/guardian denies using alcohol. - Ebola Screening: : Patient negative for fever greater than or equal to 101.5 degrees Fahrenheit, and additional compatible Ebola Virus Disease symptoms Patient denies exposure to infectious person Patient denies travel to an Ebola-affected area in the 21 days before illness onset. Screenin:47 Abuse screen: Denies threats or abuse. Denies injuries from another. Nutritional hj screening: No deficits noted. Tuberculosis screening: No symptoms or risk factors identified. Fall Risk None identified. Assessment: 18:05 General: Appears in no apparent distress. comfortable, Behavior is crying, quiet. aj Neuro: Level of Consciousness is awake, alert, obeys commands, Oriented to person, place, time, situation, Appropriate for age. Respiratory: Airway is patent Respiratory effort is even, unlabored, Respiratory pattern is regular, symmetrical. Derm: Skin is intact, is healthy with good turgor, Skin is pink, warm \\T\\ dry. normal. 20:10 Reassessment: Patient appears in no apparent distress at this time. Patient and/or cc3 family updated on plan of care and expected duration. Pain level reassessed. Patient is alert, oriented x 3, equal unlabored respirations, skin warm/dry/pink. Received the patient from trauma room as a case of suicidal ideation. With IV cannula gauge 22 at the left ACV saline locked. Sitter at the bedside completing safety checks and monitoring the patient. 21:30 Reassessment: Patient appears in no apparent distress at this time. Patient and/or cc3 family updated on plan of care and expected duration. Pain level reassessed. Patient is alert, oriented x 3, equal unlabored respirations, skin warm/dry/pink. 22:18 Reassessment: Patient appears in no apparent distress at this time. Patient and/or cc3 family updated on plan of care and expected duration. Pain level reassessed. Patient is alert, oriented x 3, equal unlabored respirations, skin warm/dry/pink. 23:15 Reassessment: Patient appears in no apparent distress at this time. Patient and/or cc3 family updated on plan of care and expected duration. Pain level reassessed. Patient is alert, oriented x 3, equal unlabored respirations, skin warm/dry/pink. Mental health deputy came for the patient at bedside. 09/15 00:20 Reassessment: Patient appears in no apparent distress at this time. Patient and/or cc3 family updated on plan of care and expected duration. Pain level reassessed. Patient is alert, oriented x 3, equal unlabored respirations, skin warm/dry/pink. 01:15 Reassessment: Patient complaint of headache; Provider notified. lp1 02:20 Reassessment: Patient appears in no apparent distress at this time. Patient and/or cc3 family updated on plan of care and expected duration. Pain level reassessed. Patient is alert, oriented x 3, equal unlabored respirations, skin warm/dry/pink. 03:20 Reassessment: Patient appears in no apparent distress at this time. Patient and/or cc3 family updated on plan of care and expected duration. Pain level reassessed. Patient is alert, oriented x 3, equal unlabored respirations, skin warm/dry/pink. 04:18 Reassessment: Patient appears in no apparent distress at this time. Patient and/or cc3 family updated on plan of care and expected duration. Pain level reassessed. Patient is alert, oriented x 3, equal unlabored respirations, skin warm/dry/pink. 05:10 Reassessment: Patient appears in no apparent distress at this time. Patient and/or cc3 family updated on plan of care and expected duration. Pain level reassessed. Patient is alert, oriented x 3, equal unlabored respirations, skin warm/dry/pink. 06:30 Reassessment: Patient appears in no apparent distress at this time. Patient and/or cc3 family updated on plan of care and expected duration. Pain level reassessed. Patient is alert, oriented x 3, equal unlabored respirations, skin warm/dry/pink. 07:45 General: Appears in no apparent distress. comfortable, Behavior is calm, cooperative, sv appropriate for age. Pain: Denies pain. Neuro: Level of Consciousness is awake, alert, obeys commands, Oriented to person, place, time, situation, Moves all extremities. Full function. Cardiovascular: Heart tones S1 S2 present. Respiratory: Airway is patent Respiratory effort is Respiratory pattern is regular, symmetrical, Breath sounds are clear bilaterally. Derm: Skin is pink, warm \\T\\ dry. Musculoskeletal: Range of motion: intact in all extremities. 09:00 Reassessment: Patient appears in no apparent distress at this time. No changes from sv previously documented assessment. Patient and/or family updated on plan of care and expected duration. Pain level reassessed. Patient is alert, oriented x 3, equal unlabored respirations, skin warm/dry/pink. 09:31 Reassessment: Pt given breakfast tray. sv 10:30 Reassessment: Patient appears in no apparent distress at this time. No changes from sv previously documented assessment. 11:50 Reassessment: Patient appears in no apparent distress at this time. No changes from previously documented assessment. 13:03 Reassessment: Patient appears in no apparent distress at this time. No changes from previously documented assessment. 13:16 Reassessment: Called [facility] to give nurse to nurse report, they want me to call sv back in 30 mins. 13:58 Reassessment: Report given to Montse HALE at [facility]. Psych: 09/14 17:49 Subjective: Having thoughts of suicide. Denies suicidal plan. Objective: Patient is hj cooperative, Speech is normal, Affect is appropriate. Interventions:. Suicide Risk Assessment: Sad Person Scale: Sex of patient: Female: Score 0 points. Age of patient: Score 0 point if patient falls outside of specified age parameters. Depression: Score 1 point if signs of depression are present. Previous Attempt: Score 1 point if patient has previously attempted suicide. Substance Abuse: Score 0 point if patient does not abuse alcohol or drugs. Rational Thinking: Score 0 point if patient has rational thinking. Organized Plan: Score 0 if patient did not have an organized plan in place. Relationship: Chronic Sickness:. Pt denies substance abuse. Commitment: Patient will be a voluntary commitment. 18:06 Subjective: Patient's mood is sad, hopeless, Delusions are denied, Hallucinations are aj denied Having thoughts of suicide. Reports thoughts of hanging herself, taking pills, "drinking something to make me go to sleep", and other thoughts that "pop into my head". Safety Checks: Personal items have been removed. Door is open. No visitors are present at this time. Vital Signs: 17:48 BP 113 / 71; Pulse 87; Resp 18; Temp 98.0(TE); Pulse Ox 98% on R/A; Weight 88.45 kg; hj Height 5 ft. 4 in. (162.56 cm); Pain 0/10; 19:23 BP 100 / 60; Pulse 67; Resp 18; Pulse Ox 99% on R/A; mw2 23:31 BP 110 / 72; Pulse 79; Temp 98.2(O); Pulse Ox 99% on R/A; gm 09/15 03:32 BP 115 / 74; Pulse 68; Resp 18; Pulse Ox 100% on R/A; gm 07:06 BP 119 / 66; Pulse 65; Resp 16; Pulse Ox 100% on R/A; dh3 07:54 Temp 97.9; Pain 0/10; sv 10:34 BP 115 / 70; Pulse 76; Resp 18; Pulse Ox 100% on R/A; dh3 14:08 BP 111 / 68; Pulse 67; Resp 17; Temp 98.2(O); Pulse Ox 100% on R/A; Pain 0/10; dh3 09/14 17:48 Body Mass Index 33.47 (88.45 kg, 162.56 cm) hj ED Course: 09/14 17:41 Patient arrived in ED. sb2 17:42 None, None is Private Physician. sb2 17:46 Triage completed. hj 17:48 Arm band placed on right wrist. hj 17:51 Patient has correct armband on for positive identification. Placed in gown. Bed in low hj position. 17:54 Gurvinder Carr PA is PHCP. cp 17:54 Gurvinder Juan MD is Attending Physician. cp 18:04 Bettye Chirinos RN is Primary Nurse. aj 19:00 Safety checks: Items removed: yes. Door open/sign placed on door: yes. Family/friend mw2 present: no. Sitter present: Yes. 19:15 Safety checks: Items removed: yes. Door open/sign placed on door: yes. Family/friend mw2 present: no. Sitter present: Yes. 20:00 Safety checks: Items removed: yes. Door open/sign placed on door: yes. Family/friend gm present: no. Sitter present: Yes. 20:15 Safety checks: Items removed: yes. Door open/sign placed on door: yes. Family/friend gm present: no. Sitter present: Yes. 20:30 Safety checks: Items removed: yes. Door open/sign placed on door: yes. Family/friend gm present: no. Sitter present: Yes. 20:45 Safety checks: Items removed: yes. Door open/sign placed on door: yes. Family/friend gm present: no. Sitter present: Yes. 21:00 Safety checks: Items removed: yes. Door open/sign placed on door: yes. Family/friend gm present: no. Sitter present: Yes. 21:15 Safety checks: Items removed: yes. Door open/sign placed on door: yes. Family/friend gm present: no. Sitter present: Yes. 21:30 Safety checks: Items removed: yes. Door open/sign placed on door: yes. Family/friend gm present: no. Sitter present: Yes. 21:45 Safety checks: Items removed: yes. Door open/sign placed on door: yes. Family/friend gm present: no. Sitter present: Yes. 22:00 Safety checks: Items removed: yes. Door open/sign placed on door: yes. Family/friend gm present: no. Sitter present: Yes. 22:15 patient stated that " i want to leave, i need to leave" she told me that she did not gm have anyone to take her son to daycare in the morning. informed charge nurse and gurvinder lewis of what was going on. 22:15 Safety checks: Items removed: yes. Door open/sign placed on door: yes. Family/friend gm present: no. Sitter present: Yes. 22:18 \\T\\2017 called [employer] and asked for patient to have an YOUSUF placed. patient trying to go home. 22:21 deputy called back and said he would be here in 30 min. 22:30 Safety checks: Items removed: yes. Door open/sign placed on door: yes. Family/friend gm present: no. Sitter present: Yes. 22:45 Safety checks: Items removed: yes. Door open/sign placed on door: yes. Family/friend gm present: no. Sitter present: Yes. 23:00 Safety checks: Items removed: yes. Door open/sign placed on door: yes. Family/friend gm present: no. Sitter present: Yes. 23:15 Safety checks: Items removed: yes. Door open/sign placed on door: yes. Family/friend gm present: no. Sitter present: Yes. 23:29 mental health deputy came and spoke with patient. 23:30 Safety checks: Items removed: yes. Door open/sign placed on door: yes. Family/friend gm present: no. Sitter present: Yes. 23:42 mental health deputy left patients room. 23:45 Safety checks: Items removed: yes. Door open/sign placed on door: yes. Family/friend gm present: no. Sitter present: Yes. 09/15 00:00 Safety checks: Items removed: yes. Door open/sign placed on door: yes. Family/friend gm present: no. Sitter present: Yes. 00:15 Safety checks: Items removed: yes. Door open/sign placed on door: yes. Family/friend gm present: no. Sitter present: Yes. 00:30 Safety checks: Items removed: yes. Door open/sign placed on door: yes. Family/friend gm present: no. Sitter present: Yes. 00:45 Safety checks: Items removed: yes. Door open/sign placed on door: yes. Family/friend gm present: no. Sitter present: Yes. 01:00 Safety checks: Items removed: yes. Door open/sign placed on door: yes. Family/friend gm present: no. Sitter present: Yes. 01:15 Safety checks: Items removed: yes. Door open/sign placed on door: yes. Family/friend gm present: no. Sitter present: Yes. 01:30 Safety checks: Items removed: yes. Door open/sign placed on door: yes. Family/friend gm present: no. Sitter present: Yes. 01:45 Safety checks: Items removed: yes. Door open/sign placed on door: yes. Family/friend gm present: no. Sitter present: Yes. 02:00 Safety checks: Items removed: yes. Door open/sign placed on door: yes. Family/friend gm present: no. Sitter present: Yes. 02:15 Safety checks: Items removed: yes. Door open/sign placed on door: yes. Family/friend gm present: no. Sitter present: Yes. 02:30 Safety checks: Items removed: yes. Door open/sign placed on door: yes. Family/friend gm present: no. Sitter present: Yes. 02:45 Safety checks: Items removed: yes. Door open/sign placed on door: yes. Family/friend gm present: no. Sitter present: Yes. 03:00 Safety checks: Items removed: yes. Door open/sign placed on door: yes. Family/friend gm present: no. Sitter present: Yes. 03:15 Safety checks: Items removed: yes. Door open/sign placed on door: yes. Family/friend gm present: no. Sitter present: Yes. 03:30 Safety checks: Items removed: yes. Door open/sign placed on door: yes. Family/friend gm present: no. Sitter present: Yes. 03:45 Safety checks: Items removed: yes. Door open/sign placed on door: yes. Family/friend gm present: no. Sitter present: Yes. 04:00 Safety checks: Items removed: yes. Door open/sign placed on door: yes. Family/friend gm present: no. Sitter present: Yes. 04:15 Safety checks: Items removed: yes. Door open/sign placed on door: Family/friend gm present: no. Sitter present: Yes. 04:30 Safety checks: Items removed: yes. Door open/sign placed on door: yes. Family/friend gm present: no. Sitter present: Yes. 04:45 Safety checks: Items removed: yes. Door open/sign placed on door: yes. Family/friend gm present: no. Sitter present: Yes. 05:00 Safety checks: Items removed: yes. Door open/sign placed on door: yes. Family/friend gm present: no. Sitter present: Yes. 05:15 Safety checks: Items removed: yes. Door open/sign placed on door: yes. Family/friend gm present: no. Sitter present: Yes. 05:30 Safety checks: Items removed: yes. Door open/sign placed on door: yes. Family/friend gm present: no. Sitter present: Yes. 05:45 Safety checks: Items removed: yes. Door open/sign placed on door: yes. Family/friend gm present: no. Sitter present: Yes. 06:00 Safety checks: Items removed: yes. Door open/sign placed on door: yes. Family/friend gm present: no. Sitter present: Yes. 06:02 PHCP role handed off by Gurvinder Carr PA snw 06:02 Fern Foley FNP-C is PHCP. snw 06:15 Safety checks: Items removed: yes. Door open/sign placed on door: yes. Family/friend gm present: no. Sitter present: Yes. 06:30 Safety checks: Items removed: yes. Door open/sign placed on door: yes. Family/friend gm present: no. Sitter present: Yes. 06:41 patient records faxed to the following facilities in the attempt to transfer; [facility], [facility], [facility], [facility], [facility], [facility] , [facility], [facility], [facility], [facility] and [facility]. 06:45 Safety checks: Items removed: yes. Door open/sign placed on door: yes. Family/friend gm present: no. Sitter present: Yes. 07:00 Safety checks: Items removed: yes. Door open/sign placed on door: yes. Family/friend gm present: no. Sitter present: Yes. 07:15 Safety checks: Items removed: yes. Door open/sign placed on door: yes. Family/friend dh3 present: no. Sitter present: Yes. 07:15 Inserted saline lock: 22 gauge in left antecubital area, using aseptic technique. sv ,using aseptic technique. done by shift mechanic. 07:30 Safety checks: Items removed: yes. Door open/sign placed on door: yes. Family/friend dh3 present: no. Sitter present: Yes. 07:45 Safety checks: Items removed: yes. Door open/sign placed on door: yes. Family/friend dh3 present: no. Sitter present: Yes. 08:00 Safety checks: Items removed: yes. Door open/sign placed on door: yes. Family/friend dh3 present: no. Sitter present: Yes. 08:15 Safety checks: Items removed: yes. Door open/sign placed on door: yes. Family/friend dh3 present: no. Sitter present: Yes. 08:25 Erlinda from [facility] called asking if we still need a bed and that they received eb the chart and will be reviewing the clinical and will call us back. 08:30 Safety checks: Items removed: yes. Door open/sign placed on door: yes. Family/friend dh3 present: no. Sitter present: Yes. 08:45 Safety checks: Items removed: yes. Door open/sign placed on door: yes. Family/friend dh3 present: no. Sitter present: Yes. 09:00 Safety checks: Items removed: yes. Door open/sign placed on door: yes. Family/friend dh3 present: no. Sitter present: Yes. 09:15 Safety checks: Items removed: yes. Door open/sign placed on door: yes. Family/friend dh3 present: no. Sitter present: Yes. 09:30 Safety checks: Items removed: yes. Door open/sign placed on door: yes. Family/friend dh3 present: no. Sitter present: Yes. 09:45 Safety checks: Items removed: yes. Door open/sign placed on door: yes. Family/friend dh3 present: yes. Family/friends encouraged to stay with patient. Sitter present: Yes. 10:00 Safety checks: Items removed: yes. Door open/sign placed on door: yes. Family/friend dh3 present: yes. Family/friends encouraged to stay with patient. Sitter present: Yes. 10:15 Safety checks: Items removed: yes. Door open/sign placed on door: yes. Family/friend dh3 present: yes. Sitter present: Yes. 10:30 Safety checks: Items removed: yes. Door open/sign placed on door: yes. Family/friend dh3 present: no. Sitter present: Yes. 10:45 Safety checks: Items removed: yes. Door open/sign placed on door: yes. Family/friend dh3 present: no. Sitter present: Yes. 11:00 Safety checks: Items removed: yes. Door open/sign placed on door: yes. Family/friend dh3 present: no. Sitter present: Yes. 11:15 Safety checks: Items removed: yes. Door open/sign placed on door: yes. Family/friend dh3 present: no. Sitter present: Yes. 11:30 Safety checks: Items removed: yes. Door open/sign placed on door: yes. Family/friend dh3 present: no. Sitter present: Yes. 11:45 Safety checks: Items removed: yes. Door open/sign placed on door: yes. Family/friend dh3 present: no. Sitter present: Yes. 12:00 Safety checks: Items removed: yes. Door open/sign placed on door: yes. Family/friend dh3 present: no. Sitter present: Yes. 12:15 Safety checks: Items removed: yes. Door open/sign placed on door: yes. Family/friend dh3 present: no. Sitter present: Yes. 12:30 Safety Checks: Personal items have been removed. The door is open or patient has been ss placed in a hallway bed/chair. There are no family/friend visitors at this time Sitter present at this time. 12:30 Patient has correct armband on for positive identification. ss 12:45 Safety Checks: Personal items have been removed. The door is open or patient has been ss placed in a hallway bed/chair. There are no family/friend visitors at this time Sitter present at this time. 13:00 Safety checks: Items removed: yes. Door open/sign placed on door: yes. Family/friend dh3 present: no. Sitter present: Yes. 13:03 Primary Nurse role handed off by Bettye Chirinos RN sv 13:03 Kati Wallace, ALEXIA is Primary Nurse. sv 13:15 Safety checks: Items removed: yes. Door open/sign placed on door: yes. Family/friend dh3 present: no. Sitter present: Yes. 13:30 Safety checks: Items removed: yes. Door open/sign placed on door: yes. Family/friend dh3 present: yes. Family/friends encouraged to stay with patient. Sitter present: Yes. 13:45 Safety checks: Items removed: yes. Door open/sign placed on door: yes. Family/friend dh3 present: yes. Family/friends encouraged to stay with patient. Sitter present: Yes. 14:00 Safety checks: Items removed: yes. Door open/sign placed on door: yes. Family/friend ag present: no. Sitter present: Yes. 14:15 Safety checks: Items removed: yes. Door open/sign placed on door: yes. Family/friend ag present: no. Sitter present: Yes. Assisted to bedside commode. 14:29 Patient cleaned up and put in her contacts. patient is now back in the bed waiting on ag EMS. 14:30 Safety checks: Items removed: yes. Door open/sign placed on door: yes. Family/friend ag present: no. Sitter present: Yes. 14:44 transfer transportation to receiving facility. sv 14:51 No provider procedures requiring assistance completed. IV discontinued, intact, sv bleeding controlled, No redness/swelling at site. Pressure dressing applied. Administered Medications: 01:24 Drug: Tylenol 1000 mg Route: PO; lp1 02:00 Follow up: Response: No adverse reaction; Pain is decreased cc3 Outcome: 02:55 ER care complete, transfer ordered by MD. maguire 14:51 Transferred by ground EMS Transfer form completed. Note: [facility] Report given to warren Rafaela from EMS 14:51 Condition: stable 14:51 Instructed on the need for transfer. 14:55 Patient left the ED. sv Signatures: Kati Wallace, RN Bettye Martinez RN RN Fern English, HOT DIPPER-C HOT DIPPER-Csnw Danae Lyle RN RN ss Pena, Laura RN RN lp1 Clemencia Catalan Henry RN Gurvinder Sutherland PA PA cp Herrera, Deanna 3 Janett Mcrae 2 Melanie Jimenes 2 Kailey Marrufo Charlene 3 Vikki Perdue gm Corrections: (The following items were deleted from the chart) 09/14 17:51 17:48 Pulse 87bpm; Resp 18bpm; Pulse Ox 98% RA; Temp 98.0F Temporal; 88.45 kg; Height 5 hj ft. 4 in.; BMI: 33.4; Pain 0/10; 17:56 17:44 Presenting complaint: Patient states: im having suicidal thoughts for couple of hj days now and its getting worse; states: i dont have any plans on how to do it; i stopped taking Effexor after taking it for a month because its not helping; 09/15 05:03 09/14 23:20 Reassessment: Patient appears in no apparent distress at this time. Patient cc3 and/or family updated on plan of care and expected duration. Pain level reassessed. Patient is alert, oriented x 3, equal unlabored respirations, skin warm/dry/pink. [facility] 09/15 10:23 10:00 Safety checks: Items removed: yes. Door open/sign placed on door: yes. 3 Family/friend present: yes. Family/friends encouraged to stay with patient. Sitter present: No. [facility] 14: 14:00 Reassessment: Report given to Montse HALE at [facility]. warren kelley
--- NOTE | 2018-09-15 02:56 | EDPHYS ---
Physician Documentation [facility] Name: Tiana Mcclellan Age: 33 yrs Sex: Female : 1985 Arrival Date: 09/14/2018 Time: 17:41 Bed 15 Private MD: None, None ED Physician Gurvinder Juan HPI: 09/14 18:05 This 33 yrs old Female presents to ER via Ambulatory with complaints of cp Suicidal Ideation. 18:05 The patient presents to the emergency department with depression, suicide ideation. cp Onset: The symptoms/episode began/occurred gradually, and became worse today. Past psychiatric history: Prior diagnosis: depression, Psychiatric medications include: Effexor, the patient has had a prior suicide gesture, attempt at hanging, the patient has a previous inpatient psychiatric history, last year, at [facility]. DIPPER FISH: 17:48 LMP 08/11/2018 Historical: - Allergies: 17:47 No Known Allergies; hj - Home Meds: 17:47 Effexor XR 37.5 mg Oral cp24 1 cap once daily [Active]; hj - PMHx: 17:47 Depression; hj - PSHx: 17:47 None; hj - Immunization history:: Adult Immunizations up to date. - Social history:: Smoking status: Patient/guardian denies using tobacco, Patient/guardian denies using alcohol. - Ebola Screening: : Patient negative for fever greater than or equal to 101.5 degrees Fahrenheit, and additional compatible Ebola Virus Disease symptoms Patient denies exposure to infectious person Patient denies travel to an Ebola-affected area in the 21 days before illness onset. ROS: 18:08 Constitutional: Negative for body aches, chills, fever, poor PO intake. cp 18:08 Eyes: Negative for injury, pain, redness, and discharge. cp 18:08 ENT: Negative for drainage from ear(s), ear pain, sore throat, difficulty swallowing, difficulty handling secretions. 18:08 Cardiovascular: Negative for chest pain, edema, palpitations. 18:08 Respiratory: Negative for cough, shortness of breath, wheezing. 18:08 Abdomen/GI: Negative for abdominal pain, nausea, vomiting, and diarrhea, constipation. 18:08 : Negative for urinary symptoms, vaginal bleeding, vaginal discharge. 18:08 Skin: Negative for cellulitis, rash. 18:08 Neuro: Negative for altered mental status, dizziness, headache, weakness. 18:08 Psych: Positive for depression, suicidal ideation, Negative for auditory hallucinations, visual hallucinations. 18:08 All other systems are negative. Exam: 18:11 Constitutional: The patient appears in no acute distress, alert, awake, cp non-diaphoretic, non-toxic, well developed, well nourished. 18:11 Head/Face: Normocephalic, atraumatic. Eyes: Pupils equal round and reactive to light, cp extra-ocular motions intact. Lids and lashes normal. Conjunctiva and sclera are non-icteric and not injected. Cornea within normal limits. Periorbital areas with no swelling, redness, or edema. ENT: Nares patent. No nasal discharge, no septal abnormalities noted. Tympanic membranes are normal and external auditory canals are clear. Oropharynx with no redness, swelling, or masses, exudates, or evidence of obstruction, uvula midline. Mucous membranes moist. Chest/axilla: Normal chest wall appearance and motion. Nontender with no deformity. No lesions are appreciated. Cardiovascular: Regular rate and rhythm with a normal S1 and S2. No gallops, murmurs, or rubs. Normal PMI, no JVD. No pulse deficits. Respiratory: Lungs have equal breath sounds bilaterally, clear to auscultation and percussion. No rales, rhonchi or wheezes noted. No increased work of breathing, no retractions or nasal flaring. Abdomen/GI: Soft, non-tender, with normal bowel sounds. No distension or tympany. No guarding or rebound. No evidence of tenderness throughout. Skin: Warm, dry with normal turgor. Normal color with no rashes, no lesions, and no evidence of cellulitis. Neuro: Awake and alert, GCS 15, oriented to person, place, time, and situation. Cranial nerves II-XII grossly intact. Motor strength 5/5 in all extremities. Sensory grossly intact. Cerebellar exam normal. Normal gait. 18:11 Psych: Behavior/mood is cooperative, depressed, Affect is flat, Patient having thoughts of suicide. Denies suicidal plan. Judgement / Insight is normal. Delusions/hallucinations are not present. 18:15 ECG was reviewed by the Attending Physician. Vital Signs: 17:48 BP 113 / 71; Pulse 87; Resp 18; Temp 98.0(TE); Pulse Ox 98% on R/A; Weight 88.45 kg; hj Height 5 ft. 4 in. (162.56 cm); Pain 0/10; 19:23 BP 100 / 60; Pulse 67; Resp 18; Pulse Ox 99% on R/A; mw2 23:31 BP 110 / 72; Pulse 79; Temp 98.2(O); Pulse Ox 99% on R/A; gm 09/15 03:32 BP 115 / 74; Pulse 68; Resp 18; Pulse Ox 100% on R/A; gm 07:06 BP 119 / 66; Pulse 65; Resp 16; Pulse Ox 100% on R/A; dh3 07:54 Temp 97.9; Pain 0/10; sv 10:34 BP 115 / 70; Pulse 76; Resp 18; Pulse Ox 100% on R/A; dh3 14:08 BP 111 / 68; Pulse 67; Resp 17; Temp 98.2(O); Pulse Ox 100% on R/A; Pain 0/10; dh3 09/14 17:48 Body Mass Index 33.47 (88.45 kg, 162.56 cm) hj MDM: 09/14 17:54 Patient medically screened. cp 17:57 Patient medically screened. anai 18:15 Differential diagnosis: drug withdrawal. acute psychotic break, depression, psychosis cp secondary to non-compliance. 19:45 Data reviewed: vital signs, nurses notes, lab test result(s), EKG. cp 19:45 Test interpretation: by ED physician or midlevel provider: ECG. cp 09/15 13:22 Counseling: I had a detailed discussion with the patient and/or guardian regarding: the snw historical points, exam findings, and any diagnostic results supporting the discharge/admit diagnosis, the need to transfer to another facility, for higher level of care, [facility] does not immediately have the required specialist. Physician consultation: Resident for Dr. Singh was called at 13:23, was contacted at 13:23, regarding regarding transfer, [facility]. 13:29 ED course: Spoke with Dr. Leno [facility] ED, report of pt's voluntary admission for snw depression, SI.. 09/14 18:06 Order name: Acetaminophen; Complete Time: 19:36 cp 09/14 19:36 Interpretation: ACETA < 2.0; Reviewed. cp 09/14 18:06 Order name: Basic Metabolic Panel; Complete Time: 19:36 cp 09/14 19:37 Interpretation: Reviewed. cp 09/14 18:06 Order name: CBC with Diff; Complete Time: 19:36 cp 09/14 19:36 Interpretation: Normal except: MCV 79.9; MCH 26.5; ROHIT% 81.3; LYM% 12.6. cp 09/14 18:06 Order name: ETOH Level; Complete Time: 19:36 cp 09/14 19:36 Interpretation: ETOH < 3; Reviewed. cp 09/14 18:06 Order name: Hepatic Function; Complete Time: 19:36 cp 09/14 19:36 Interpretation: Normal except: GLOB 4.0; A/G 1.0. cp / 18:06 Order name: PT-INR; Complete Time: 19:36 cp 09/14 18:06 Order name: Ptt, Activated; Complete Time: 19:36 cp 09/14 18:06 Order name: Salicylate; Complete Time: 19:36 cp 09/14 18:06 Order name: Urine Drug Screen; Complete Time: 19:36 cp 09/14 19:37 Interpretation: Reviewed. cp 09/14 18:06 Order name: EKG; Complete Time: 18:07 cp 09/14 18:06 Order name: Urine Dipstick--Ancillary (enter results); Complete Time: 19:36 ag 09/14 18:06 Order name: Urine --Ancillary (enter results); Complete Time: 19:36 ag 09/14 19:37 Interpretation: Reviewed. cp 09/15 08:47 Order name: Diet Finger Food; Complete Time: 08:48 sv 09/14 18:06 Order name: Urine Test (obtain specimen); Complete Time: 19:02 cp 09/14 18:06 Order name: EKG - Nurse/Tech; Complete Time: 19:02 cp 09/14 18:06 Order name: IV Saline Lock; Complete Time: 19:02 cp 09/14 18:06 Order name: Labs collected and sent; Complete Time: 19:02 cp 09/14 18:06 Order name: Urine Dipstick-Ancillary (obtain specimen); Complete Time: 19:03 cp 09/15 12:21 Order name: Diet Finger Food; Complete Time: 12:21 dh3 EC/06 18:15 Rate is 85 beats/min. QRS [place] is Normal. TX interval is normal. QRS interval is cp normal. QT interval is normal. Interpreted by me. Reviewed by me. Administered Medications: 09/15 01:24 Drug: Tylenol 1000 mg Route: PO; lp1 02:00 Follow up: Response: No adverse reaction; Pain is decreased cc3 Disposition: 09/16 07:28 Co-signature as Attending Physician, Gurvinder Juan MD I agree with the assessment and [facility] plan of care. Disposition: 09/15/18 02:55 Transfer ordered to Psych Facility. Diagnosis are Suicidal ideations, Depression. - Reason for transfer: Higher level of care. - Accepting physician is doctor. - Condition is Stable. - Problem is an ongoing problem. - Symptoms are unchanged. Signatures: Dispatcher [employer] Kati Wells, RN Gurvinder Price MD MD cha Therrien, Shelly, HOTEL VALET ATTENDANT-C HOTEL VALET ATTENDANT-Csnw Crys Young RN RN lp1 Titi Fall RN RN hj Page, Corey, PA PA Peggy Lehman cc3 Corrections: (The following items were deleted from the chart) 09/15 14:55 02:55 09/15/2018 02:55 Transfer ordered to Psych Facility. Diagnosis is Suicidal sv ideations; Depression. Reason for transfer: Higher level of care. Accepting physician is doctor. Condition is Stable. Problem is an ongoing problem. Symptoms are unchanged. cp
--- NOTE | 2018-09-15 06:26 | EKG ---
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
== END 2018-09-15 14:55 ==
LOC: ER 17:40
DX: F32.9 Major depressive disorder, single episode, unspecified (principal); R45.851 Suicidal ideations; Z79.899 Other long term (current) drug therapy
CPT/HCPCS: 36415; 80048; 80076; 80307; 80320; 80329; 81003; 81025; 85025; 85610; 85730; 93005; 99285

== ENCOUNTER 2019-12-14 10:32 | Emergency (ER) | payer BC, SELFPAY ==
--- OUTSIDE RECORDS SUMMARY | 2019-12-14 10:35 | XMS REPORT ---
:1985 [facility] Address [address] Garcia [address] [place] [id number] Care Team Providers Name Role Phone Unavailable Unavailable Unavailable Problems This patient has no known problems. Allergies, Adverse Reactions, Alerts This patient has no known allergies or adverse reactions. Medications This patient has no known medications.
[2019-12-14 11:59] LABS: Absolute Lymphocytes (CBC) 1.3 K/uL (0.7-4.9); Basophils % 0.4 % (0-1.3); Hematocrit 36.3 % (36.0-45.0); Lymphocytes % 15.4 % (15.3-44.8); MPV 10.5 fL (7.6-11.3); RBC Red Blood Cell Count 4.53 M/uL (3.86-4.86)
[2019-12-14 12:19] LABS: Potassium 3.7 mmol/L (3.5-5.1)
--- NOTE | 2019-12-14 12:57 | EDPHYS ---
Physician Documentation [facility] Name: Tiana Mcclellan Age: 34 yrs Sex: Female : 1985 Arrival Date: 12/14/2019 Time: 10:37 Bed 18 Private MD: None, None ED Physician Gurvinder Juan HPI: 12/13 11:06 This 34 yrs old Female presents to ER via Ambulatory with complaints of pm1 Vaginal Bleeding, + Preg <12wks. 11:06 The patient presents to the emergency department with vaginal bleeding, with clots, pm1 initially spotting. The estimated gestational age is 6 weeks. course: care: none, has appointment scheduled but multiple weeks away, Leakage of Fluid: none appreciated, Ultrasound: the patient has not had an ultrasound. Associated signs and symptoms: Pertinent negatives: chest pain, dysuria, nausea, shortness of breath, vaginal discharge, vomiting. The patient has experienced a previous episode, approximately 5 months ago, and the symptoms today are exactly the same, miscarriage at 7 weeks. 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 - Social history:: Smoking status: Patient denies any tobacco usage or history of. ROS: 11:06 Constitutional: Negative for fever, chills, and weight loss, Cardiovascular: Negative pm1 for chest pain, palpitations, and edema, Respiratory: Negative for shortness of breath, cough, wheezing, and pleuritic chest pain. 11:06 Back: Negative for injury and pain. 11:06 Skin: Negative for injury, rash, and discoloration, Neuro: Negative for headache, weakness, numbness, tingling, and seizure. 11:06 Abdomen/GI: Positive for abdominal cramps, Negative for nausea, vomiting, and diarrhea. 11:06 : Positive for vaginal bleeding, Negative for urinary symptoms. Exam: 11:06 Constitutional: This is a well developed, well nourished patient who is awake, alert, pm1 and in no acute distress. Head/Face: Normocephalic, atraumatic. Neck: Trachea midline, no thyromegaly or masses palpated, and no cervical lymphadenopathy. Supple, full range of motion without nuchal rigidity, or vertebral point tenderness. No Meningismus. Chest/axilla: Normal chest wall appearance and motion. Nontender with no deformity. No lesions are appreciated. Cardiovascular: Regular rate and rhythm with a normal S1 and S2. No gallops, murmurs, or rubs. Normal PMI, no JVD. No pulse deficits. Respiratory: Lungs have equal breath sounds bilaterally, clear to auscultation and percussion. No rales, rhonchi or wheezes noted. No increased work of breathing, no retractions or nasal flaring. Abdomen/GI: Soft, non-tender, with normal bowel sounds. No distension or tympany. No guarding or rebound. No evidence of tenderness throughout. Back: No spinal tenderness. No costovertebral tenderness. Full range of motion. Skin: Warm, dry with normal turgor. Normal color with no rashes, no lesions, and no evidence of cellulitis. MS/ Extremity: Pulses equal, no cyanosis. Neurovascular intact. Full, normal range of motion. 11:06 Neuro: Exam negative for acute changes, Orientation: is normal, Motor: is normal, moves all fours. Vital Signs: 10:42 BP 130 / 96; Pulse 80; Resp 18 S; Temp 98.6(TE); Pulse Ox 100% on R/A; Weight 95.25 kg aa5 (R); Height 5 ft. 3 in. (160.02 cm) (R); Pain 0/10; 12:00 BP 124 / 78; Pulse 87; Resp 18; Pulse Ox 99% on R/A; ph 13:00 BP 118 / 86; Pulse 76; Resp 18; Temp 98.0; Pulse Ox 100% on R/A; ph 10:42 Body Mass Index 37.20 (95.25 kg, 160.02 cm) aa5 MDM: 10:52 Patient medically screened. [facility] 12:54 ED course: Patient was checking her beta HCG and on 12/11/2019 it was 63. Today the pm1 result is 28. Patient is likely having a miscarriage. Will discharge the patient to follow up with BOUFFANT CURTAIN MACHINE TENDER. 12:54 Data reviewed: vital signs. Data interpreted: Pulse oximetry: on room air is 100 %. pm1 Interpretation: normal. Counseling: I had a detailed discussion with the patient and/or guardian regarding: the historical points, exam findings, and any diagnostic results supporting the discharge/admit diagnosis, lab results, the need for outpatient follow up, an OB/Gyne specialist, to return to the emergency department if symptoms worsen or persist or if there are any questions or concerns that arise at home. 12:54 ED course: Beta HCG on 12/03, on 12/06. pm1 12/13 10:50 Order name: Quantitative Hcg; Complete Time: 12:36 pm1 12/13 10:50 Order name: Abo/rh Typing; Complete Time: 12:36 pm1 12/13 10:50 Order name: Urine Test (obtain specimen); Complete Time: 11:58 pm1 12/13 10:50 Order name: Basic Metabolic Panel; Complete Time: 12:36 pm1 12/13 10:50 Order name: CBC with Diff; Complete Time: 12:01 pm1 12/13 10:50 Order name: IV Saline Lock; Complete Time: 11:58 pm1 12/13 10:50 Order name: Labs collected and sent; Complete Time: 11:58 pm1 12/13 10:50 Order name: NPO; Complete Time: 11:59 pm1 12/13 10:50 Order name: Urine Dipstick-Ancillary (obtain specimen); Complete Time: 11:59 pm1 Administered Medications: No medications were administered Disposition: 12/14 07:37 Co-signature as Attending Physician, Gurvinder Juan MD I agree with the assessment and anai plan of care. Disposition: 12/14/19 12:57 Discharged to Home. Impression: Threatened . - Condition is Stable. - Discharge Instructions: Threatened Miscarriage, Pelvic Rest. - Work release form, Medication Reconciliation Form, Thank You Letter, Antibiotic Education, Prescription Opioid Use form. - Follow up: Emergency Department; When: As needed; Reason: Worsening of condition. Follow up: Private Physician; When: 2 - 3 days; Reason: Recheck today's complaints, Continuance of care, Re-evaluation by your physician. - Problem is new. - Symptoms have improved. Signatures: Dispatcher [employer] EDMS Gurvinder Juan MD MD cha Calderon, Audri, RN RN aa5 Erlinda Patten, RN RN ph Omar Daigle, HARDBOARD COATING MACHINE OPERATOR HARDBOARD COATING MACHINE OPERATOR pm1 Corrections: (The following items were deleted from the chart) 12/13 12:42 12:02 Transvaginal Ob+US.RAD.BRZ ordered. [facility] 13:37 12:57 12/14/2019 12:57 Discharged to Home. Impression: Threatened . Condition ph is Stable. Forms are Medication Reconciliation Form, Thank You Letter, Antibiotic Education, Prescription Opioid Use. Follow up: Emergency Department; When: As needed; Reason: Worsening of condition. Follow up: Private Physician; When: 2 - 3 days; Reason: Recheck today's complaints, Continuance of care, Re-evaluation by your physician. Problem is new. Symptoms have improved. pm1
--- NOTE | 2019-12-14 12:57 | ER ---
Nurse's Notes [facility] Name: Tiana Mcclellan Age: 34 yrs Sex: Female : 1985 Arrival Date: 12/14/2019 Time: 10:37 Bed 18 Private MD: None, None Diagnosis: Threatened Presentation: 12/13 10:42 Chief complaint: Patient states: approximately 7 weeks and vaginal bleeding aa5 since Saturday, pt states "it started like spotting and now it's heavier with clots". pt also reports abd cramping. Coronavirus screen: Proceed with normal triage. Ebola Screen: Patient negative for fever greater than or equal to 101.5 degrees Fahrenheit, and additional compatible Ebola Virus Disease symptoms. Initial Sepsis Screen: Does the patient meet any 2 criteria? No. Patient's initial sepsis screen is negative. Does the patient have a suspected source of infection? No. Patient's initial sepsis screen is negative. Risk Assessment: Do you want to hurt yourself or someone else? Patient reports no desire to harm self or others. Onset of symptoms was December 2019. 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 - Social history:: Smoking status: Patient denies any tobacco usage or history of. Screenin:00 Abuse screen: Denies threats or abuse. Denies injuries from another. Nutritional ph screening: No deficits noted. Tuberculosis screening: No symptoms or risk factors identified. Fall Risk None identified. Assessment: 11:45 General: Appears in no apparent distress. comfortable, well groomed, Behavior is calm, ph cooperative, appropriate for age. Pain: Complains of pain in suprapubic area. Neuro: Level of Consciousness is awake, alert, obeys commands, Oriented to person, place, time, situation. Cardiovascular: Capillary refill < 3 seconds in bilateral fingers Patient's skin is warm and dry. Respiratory: Airway is patent Respiratory effort is. : Reports cramping, vaginal bleeding that is with clots, moderate flow. Derm: Skin is intact, is healthy with good turgor, Skin is pink, warm \\T\\ dry. 13:00 Reassessment: Patient appears in no apparent distress at this time. Patient and/or ph family updated on plan of care and expected duration. Pain level reassessed. Patient is alert, oriented x 3, equal unlabored respirations, skin warm/dry/pink. Vital Signs: 10:42 BP 130 / 96; Pulse 80; Resp 18 S; Temp 98.6(TE); Pulse Ox 100% on R/A; Weight 95.25 kg aa5 (R); Height 5 ft. 3 in. (160.02 cm) (R); Pain 0/10; 12:00 BP 124 / 78; Pulse 87; Resp 18; Pulse Ox 99% on R/A; ph 13:00 BP 118 / 86; Pulse 76; Resp 18; Temp 98.0; Pulse Ox 100% on R/A; ph 10:42 Body Mass Index 37.20 (95.25 kg, 160.02 cm) aa5 ED Course: 10:37 Patient arrived in ED. mr 10:37 None, None is Private Physician. mr 10:42 Arm band placed on. aa5 10:43 Triage completed. aa5 10:50 Omar aDigle, ERINN is PHCP. pm1 10:50 Gurvinder Juan MD is Attending Physician. pm1 11:21 Erlinda Patten, RN is Primary Nurse. ph 11:45 Initial lab(s) drawn, by ky, sent to lab. Urine collected: clean catch specimen, shayla ph colored. Missed attempt(s): 20 gauge in left antecubital area. Bleeding controlled, band aid applied, catheter tip intact. 11:50 Urine collected: clean catch specimen, clear. dh3 11:54 Patient has correct armband on for positive identification. Bed in low position. Call ph light in reach. Side rails up X 1. Pulse ox on. NIBP on. Door closed. 13:35 No provider procedures requiring assistance completed. Patient did not have IV access ph during this emergency room visit. Administered Medications: No medications were administered Outcome: 12:57 Discharge ordered by . pm1 13:37 Patient left the ED. ph 13:37 Discharged to home ambulatory. ph 13:37 Condition: good 13:37 Discharge instructions given to patient, Instructed on discharge instructions, follow up and referral plans. Demonstrated understanding of instructions, follow-up care. Signatures: Tanja Broussard ElliottLacy, RN RN aa5 Erlinda Patten RN RN ph Omar Daigle, ERINN SUB PRIOR pm1 Beth Mosley 3
[2019-12-14 13:42] VITALS: BP 130/96; TEMP 98.6; O2SAT 100
== END 2019-12-14 13:37 | disposition home or self-care (01) ==
LOC: ER 10:32
DX: O20.0 Threatened abortion (principal); Z3A.01 Less than 8 weeks gestation of pregnancy
CPT/HCPCS: 36415; 80048; 84702; 85025; 86900; 86901; 99283

== ENCOUNTER 2020-03-25 11:36 | Emergency (ER) | payer BC, OTHER ==
--- OUTSIDE RECORDS SUMMARY | 2020-03-25 11:38 | XMS REPORT | Clinical Summary ---
:1985 Author Organization [facility] Address [address] [place] [address] Care Team Providers Name Role Phone Asked, No Pcp Primary Care Provider Unavailable Allergies No Known Allergies Medications No known medications Active Problems Problem Noted Date Suicidal ideations 06/05/2018 Recurrent major depressive disorder 06/05/2018 Immunizations Name Administration Dates Next Due FLUCELVAX QUAD PF 06/06/2018 Social History Tobacco Use Types Packs/Day Years Used Date Never Assessed Tobacco Cessation: Counseling Given: No Sex Assigned at Date Recorded Not on file Job Start Date Occupation Industry Not on file Not on file Not on file Travel History Travel Start Travel End No recent travel history available. 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
--- OUTSIDE RECORDS SUMMARY | 2020-03-25 11:39 | XMS REPORT | Continuity of Care Document ---
:1985 Author Organization [facility] t Address [address] [place] [address] Care Team Providers Name Role Phone Asked, Pcp Primary Care Physician Unavailable Problems Condition Condition Condition Status Onset Resolution Last Treating Co mments Source Name Details Category Date Date Treatment Clinician Date Suicidal Suicidal Disease Active [place] on ideations ideations 06-05 Meth mao 00:00: st 00 Recurrent Recurrent Disease Active Jack cardenas major major 06-05 [facility] depressive depressive 00:00: st disorder disorder 00 Pain in Pain in Diagnosis [facility] [place] [facility] Sprain of Sprain of Diagnosis Active [facility] left knee, left knee, Paige kes - unspecifie unspecifie Me moria d d l ligament, ligament, Outp ati initial initial ent encounter encounter Clin ics Allergies, Adverse Reactions, Alerts This patient has no known allergies or adverse reactions. Social History Social Habit Start Date Stop Date Quantity Comments Source Sex Assigned At Jack cardenas [facility] Medications This patient has no known medications. Immunizations Ordered Immunization Filled Immunization Date Status Commen Source Name Name FLUCELVAX QUAD PF 2018-06-06 Completed [place] 00:00:00 [facility] Procedures This patient has no known procedures. Plan of Care Planned Activity Planned Date Details Comments Source Future Scheduled 2020-04-09 INFLUENZA VACCINE Toribio cerrato [facility] Test 00:00:00 [code = INFLUENZA VACCINE] Future Scheduled 2004 Screening for [facility] Test 00:00:00 malignant neoplasm of cervix (procedure) [code = 958786762] Encounters Start End Encounter Admission Attending Care Care Encounter Source Date/Time Date/Time Type Type Clinicians Facility Department ID 2018-05-15 2018-05-15 Outpatient Valentin Galindo [id number] 13:30:00 13:30:00 [facility] Clin[facility] Results This patient has no known results.
--- NOTE | 2020-03-25 14:05 | EDPHYS ---
Physician Documentation [facility] Name: Tiana Mcclellan Age: 34 yrs Sex: Female : 1985 Arrival Date: 03/25/2020 Time: 11:48 Bed 15 Private MD: ED Physician George Vallejo HPI: 03/25 14:19 This 34 yrs old Female presents to ER via Ambulatory with complaints of Sore snw Throat. 14:19 The patient presents with sore throat. The patient describes throat pain as raw. Onset: snw The symptoms/episode began/occurred gradually. Severity of symptoms: At their worst the symptoms were moderate. Associated signs and symptoms: Pertinent positives: cough, flu-like symptoms. The patient has not experienced similar symptoms in the past. 03/15/20. Pt began having s/s on 03/14/20 and then rec'd CoVid test 03/15/20. No results.. 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 - Social history:: Smoking status: Patient denies any tobacco usage or history of. ROS: 14:17 Eyes: Negative for injury, pain, redness, and discharge. snw 14:17 Neck: Negative for injury, pain, and swelling, Cardiovascular: Negative for chest pain, palpitations, and edema, Abdomen/GI: Negative for abdominal pain, nausea, vomiting, diarrhea, and constipation, Back: Negative for injury and pain, : Negative for injury, bleeding, discharge, and swelling, MS/Extremity: Negative for injury and deformity, Skin: Negative for injury, rash, and discoloration, Neuro: Negative for headache, weakness, numbness, tingling, and seizure, Psych: Negative for depression, anxiety, suicide ideation, homicidal ideation, and hallucinations. 14:17 Constitutional: Positive for body aches, fatigue, malaise. 14:17 ENT: Positive for hoarseness. 14:17 Respiratory: Positive for cough, shortness of breath, at rest. Exam: 14:17 Head/Face: Normocephalic, atraumatic. Eyes: Pupils equal round and reactive to light, snw extra-ocular motions intact. Lids and lashes normal. Conjunctiva and sclera are non-icteric and not injected. Cornea within normal limits. Periorbital areas with no swelling, redness, or edema. ENT: Nares patent. No nasal discharge, no septal abnormalities noted. Tympanic membranes are normal and external auditory canals are clear. Oropharynx with no redness, swelling, or masses, exudates, or evidence of obstruction, uvula midline. Mucous membranes moist. Neck: Trachea midline, no thyromegaly or masses palpated, and no cervical lymphadenopathy. Supple, full range of motion without nuchal rigidity, or vertebral point tenderness. No Meningismus. Chest/axilla: Normal chest wall appearance and motion. Nontender with no deformity. No lesions are appreciated. Cardiovascular: Regular rate and rhythm with a normal S1 and S2. No gallops, murmurs, or rubs. Normal PMI, no JVD. No pulse deficits. Abdomen/GI: Soft, non-tender, with normal bowel sounds. No distension or tympany. No guarding or rebound. No evidence of tenderness throughout. Back: No spinal tenderness. No costovertebral tenderness. Full range of motion. Skin: Warm, dry with normal turgor. Normal color with no rashes, no lesions, and no evidence of cellulitis. MS/ Extremity: Pulses equal, no cyanosis. Neurovascular intact. Full, normal range of motion. Neuro: Awake and alert, GCS 15, oriented to person, place, time, and situation. Cranial nerves II-XII grossly intact. Motor strength 5/5 in all extremities. Sensory grossly intact. Cerebellar exam normal. Normal gait. Psych: Awake, alert, with orientation to person, place and time. Behavior, mood, and affect are within normal limits. 14:17 Constitutional: The patient appears alert, awake, anxious. 14:17 Respiratory: the patient does not display signs of respiratory distress, Respirations: normal, Breath sounds: are clear throughout, + bronchitic cough. Vital Signs: 12:09 BP 132 / 83; Pulse 85; Resp 14; Temp 98.3; Pulse Ox 100% on R/A; Weight 92.99 kg; dm5 Height 5 ft. 3 in. (160.02 cm); Pain 0/10; 13:30 BP 118 / 85; Pulse 82; Resp 18; Temp 98.4(O); Pulse Ox 100% on R/A; Pain 3/10; ks7 14:06 BP 118 / 95; Pulse 77; Resp 18; Pulse Ox 100% on R/A; Pain 3/10; ks7 14:22 BP 112 / 59; Pulse 81; Resp 18; Temp 99.1; Pulse Ox 100% ; Pain 3/10; ks7 14:48 Temp 99.1(TE); Pulse Ox 100% ; Pain 3/10; ks7 12:09 Body Mass Index 36.31 (92.99 kg, 160.02 cm) dm5 MDM: 13:12 Patient medically screened. snw 14:18 Data reviewed: vital signs, nurses notes. Data interpreted: Pulse oximetry: on room air snw is 100 %. Interpretation: normal. Counseling: I had a detailed discussion with the patient and/or guardian regarding: the historical points, exam findings, and any diagnostic results supporting the discharge/admit diagnosis, the presence of at least one elevated blood pressure reading (>120/80) during this emergency department visit, the need for outpatient follow up, to return to the emergency department if symptoms worsen or persist or if there are any questions or concerns that arise at home. Special discussion: I have referred the patient to see his PCP for further evaluation of high blood pressure. Based on the history and exam findings, there is no indication for further emergent testing or inpatient evaluation. I discussed with the patient/guardian the need to see the primary care provider for further evaluation of the symptoms. 03/25 13:12 Order name: Strep; Complete Time: 14:21 snw 03/25 13:12 Order name: Flu; Complete Time: 14:21 snw 03/25 13:12 Order name: COVID-19 snw 03/25 14:10 Order name: Throat Culture EDMS Administered Medications: 14:19 Drug: Decadron 8 mg Route: PO; ks7 14:48 Follow up: Temp 99.1 Temporal; Pulse Ox 100% ; Pain 3/10 Adult ks7 Disposition: 19:09 Co-signature as Attending Physician, George Vallejo MD I agree with the assessment and kdr plan of care. Disposition: 03/25/20 14:04 Discharged to Home. Impression: Acute upper respiratory infection, unspecified, Cough. - Condition is Stable. - Discharge Instructions: Upper Respiratory Infection, Adult, Cough, Adult, Rehydration, Adult, COVID-19. - Prescriptions for Tessalon Perles 100 mg Oral Capsule - take 1 capsule by ORAL route every 8 hours As needed; 15 capsule. Prednisone 20 mg Oral Tablet - take 2 tablet by ORAL route once daily for 5 days; 10 tablet. Albuterol Sulfate 90 mcg/actuation - inhale 1-2 puff by INHALATION route every 4-6 hours; 1 Inhaler. - Medication Reconciliation Form, Thank You Letter, Antibiotic Education, Prescription Opioid Use form. - Follow up: Emergency Department; When: As needed; Reason: Worsening of condition. Follow up: Private Physician; When: 2 - 3 days; Reason: Recheck today's complaints, Continuance of care, Re-evaluation by your physician. Signatures: Dispatcher [employer] Inez Reed, RN RN dm5 George Vallejo MD MD [facility] Fern Fuentes, BUS GREASER-C BUS GREASER-Shannonw Danae Lyle RN RN ss Lety Gilliland, ALEXIA RN ks7 Corrections: (The following items were deleted from the chart) 15:05 14:04 03/25/2020 14:04 Discharged to Home. Impression: Acute upper respiratory ss infection, unspecified; Cough. Condition is Stable. Forms are Medication Reconciliation Form, Thank You Letter, Antibiotic Education, Prescription Opioid Use. Follow up: Emergency Department; When: As needed; Reason: Worsening of condition. Follow up: Private Physician; When: 2 - 3 days; Reason: Recheck today's complaints, Continuance of care, Re-evaluation by your physician. snw
--- NOTE | 2020-03-25 14:05 | ER ---
Nurse's Notes [facility] Name: Tiana Mcclellan Age: 34 yrs Sex: Female : 1985 Arrival Date: 03/25/2020 Time: 11:48 Bed 15 Private MD: Diagnosis: Acute upper respiratory infection, unspecified;Cough Presentation: 03/25 12:09 Chief complaint: Patient states: itchy raspy throat since March 14. very little nasal dm5 drainage. Coronavirus screen: Patient reports a cough. Patient denies shortness of breath or difficulty breathing. Patient denies measured and/or subjective temperature greater than 100.4F prior to today's visit. Patient denies travel on a cruise ship or to a country the [facility] currently lists as an affected area. Patient reports contact with known and/or suspected case of COVID-19. Patient instructed to continue to wear a mask when interacting with others. Patient moved to private room, placed in contact and droplet isolation with eye protection until further assessment. Coronavirus screen: Prior COVID test collected on: 03/15/20 Pending results. Ebola Screen: Patient negative for fever greater than or equal to 101.5 degrees Fahrenheit, and additional compatible Ebola Virus Disease symptoms Patient denies exposure to infectious person. Patient denies travel to an Ebola-affected area in the 21 days before illness onset. No symptoms or risks identified at this time. Initial Sepsis Screen: Does the patient meet any 2 criteria? No. Patient's initial sepsis screen is negative. Does the patient have a suspected source of infection? Yes: Other: viral or strep. Risk Assessment: Do you want to hurt yourself or someone else? Patient reports no desire to harm self or others. Onset of symptoms was March 14, 2020. 12:09 Method Of Arrival: Ambulatory dm5 12:09 Acuity: LOVE 4 dm5 Triage Assessment: 12:16 General: Appears in no apparent distress. Behavior is calm, cooperative. Pain: ks7 Complains of pain in c/o itchy, scratchy throat for almost 2 weeks. also c/o CINTRON Pain currently is 3 out of 10 on a pain scale. Quality of pain is described as itchy, scratching Pain began 2 weeks. EENT: Throat is pink is reddened bilaterally Reports nasal congestion Denies nasal discharge, difficulty swallowing. 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 - Social history:: Smoking status: Patient denies any tobacco usage or history of. Screenin:21 Abuse screen: Denies threats or abuse. Nutritional screening: No deficits noted. ks7 Tuberculosis screening: No symptoms or risk factors identified. Fall Risk None identified. Assessment: 12:21 General: Appears in no apparent distress. well groomed. Respiratory: Airway is patent ks7 Respiratory effort is even, unlabored, Breath sounds are clear. EENT: Reports CINTRON, scratchy throat, dry cough. Vital Signs: 12:09 BP 132 / 83; Pulse 85; Resp 14; Temp 98.3; Pulse Ox 100% on R/A; Weight 92.99 kg; dm5 Height 5 ft. 3 in. (160.02 cm); Pain 0/10; 13:30 BP 118 / 85; Pulse 82; Resp 18; Temp 98.4(O); Pulse Ox 100% on R/A; Pain 3/10; ks7 14:06 BP 118 / 95; Pulse 77; Resp 18; Pulse Ox 100% on R/A; Pain 3/10; ks7 14:22 BP 112 / 59; Pulse 81; Resp 18; Temp 99.1; Pulse Ox 100% ; Pain 3/10; ks7 14:48 Temp 99.1(TE); Pulse Ox 100% ; Pain 3/10; ks7 12:09 Body Mass Index 36.31 (92.99 kg, 160.02 cm) dm5 ED Course: 11:48 Patient arrived in ED. fj1 11:57 [facility] snw 11:57 George Vallejo MD is Attending Physician. snw 12:12 Triage completed. dm5 12:12 Arm band placed on left wrist. Patient placed in an exam room. dm5 12:13 Lety Gilliland, ALEXIA is Primary Nurse. ks7 12:21 Patient has correct armband on for positive identification. Bed in low position. Call ks7 light in reach. Side rails up X 1. 12:21 No provider procedures requiring assistance completed. Patient did not have IV access ks7 during this emergency room visit. 13:01 No apparent distress. Pt ambulated to bathroom, steady on feet. Urine sample collected. ks7 13:30 COVID-19 Sent. ks7 13:30 Flu Sent. ks7 13:30 Strep Sent. ks7 14:22 Throat Culture Sent. ks7 15:37 Health Dept notified/ PUI # [id number]/ Lindsay in lab notified. eb Administered Medications: 14:19 Drug: Decadron 8 mg Route: PO; ks7 14:48 Follow up: Temp 99.1 Temporal; Pulse Ox 100% ; Pain 3/10 Adult ks7 Outcome: 14:04 Discharge ordered by . snw 15:05 Discharged to home ambulatory. ss 15:05 Condition: good 15:05 Discharge instructions given to patient, Instructed on discharge instructions, follow up and referral plans. medication usage, Demonstrated understanding of instructions, follow-up care, medications, Prescriptions given X 3. 15:05 Patient left the ED. Addendum: 03/27/2020 16:18 Addendum: COVID-19 Result: Positive result giiven to ED physician to notify pt. s s Physician: Gurvinder Juan MD Physician was able to contact pt and pt was notified of positive COVID-19 swab result. Physician answered pt questions. Signatures: Inez Kumar, RN RN dm5 Fern Fuentes, GERIATRIC ASSISTANT-C GERIATRIC ASSISTANT-Csnw Danae Lyle RN RN Kailey Marrufo Frank [facility] Lety Gilliland RN RN ks7
[2020-03-25] MEDS ORDERED: dexAMETHasone 4 MG TAB ONE (14:25)
[2020-03-25 16:13] VITALS: BP 112/59; TEMP 99.1; O2SAT 100
== END 2020-03-25 15:05 | disposition home or self-care (01) ==
LOC: ER 11:36
DX: U07.1 COVID-19 (principal); J06.9 Acute upper respiratory infection, unspecified; R05 Cough
CPT/HCPCS: 87070; 87081; 87804 ×2; 99283; U0001; J8540